=== PATIENT | male | born 1935 | race Hispanic/Latino ===

== ENCOUNTER 2017-06-12 14:46 | Inpatient (IN) | payer MEDICARE ==
--- NOTE | 2017-06-12 16:29 | XRay Report ---
Portable chest: SOB. There are sternotomy wires. The heart is normal in size. There is no vascular congestion. There is mild coarsening of the vascular pattern throughout both lungs. The lungs may also be hyperinflated. The findings are not otherwise remarkable nor are they changed compared to prior examination in May 2016. Impression no Chronic lung disease. Probable prior cardiac surgery. No acute finding.
[2017-06-12] MEDS ORDERED: PROVENTIL IH ONE (16:42)
[2017-06-12] MEDS ORDERED: ATROVENT IH ONE (16:44)
[2017-06-12 16:54] LABS: Basophils % (Auto) 0.6 % (0.0-1.8); Eosinophils % (Auto) 0.6 % (0.0-4.3); Hematocrit 36.6 % (35.5-45.6); Hemoglobin 12.5 gm/dl (11.8-15.2); Lymphocytes # (Auto) 0.5 K/mm3 (1.2-5.4); Lymphocytes % (Auto) 6.7 % (13.4-35.0); Mean Corpuscular HGB Conc 34 % (32-34); Mean Corpuscular Hemoglobin 33 pg (28-32); Mean Corpuscular Volume 96 fl (84-94); Monocytes # (Auto) 0.7 K/mm3 (0.0-0.8); Monocytes % (Auto) 10.8 % (0.0-7.3); Red Cell Distribution Width 15.8 % (13.2-15.2)
--- NOTE | 2017-06-12 16:55 | Emergency Department Report ---
ED Shortness of Breath HPI - General Chief Complaint: Dyspnea/Respdistress Stated Complaint: STEVEN Time Seen by Provider: 06/12/17 16:41 Source: patient, EMS Mode of arrival: Stretcher Limitations: No Limitations - History of Present Illness Initial Comments: 81 YO MALE WITH H/O LARGE SELL LUNG CANCER S/P CHEMO AND XRT 2011 ,STILL SMOKER , WHO IS SHORT OF BREATH EVERYDAY IS C/O INCREASING DYSPNEA FOR THE LAST TWO DAYS. PT NORMALLY ABLE TO WALK TO THE KITCHEN TO FIX HIS FOOD AND IS UNABLE TO DO SO NOW. HE CANNOT EXERT HIMSELF BECAUSE OF INCREASED SOB ON EXERTION AND ALSO SEVERE COUGHING. HE HAS NOT CHEST PAIN. HE SELF MEDICATED WITH 2.5MG OF ALBUTEROL VIA NEB WITHOUT RELIEF. EMS ADMINISTERED 2G MAGNESIUM SULFATE, 125 SOLUMEDROL IV AND 5MG OF ALBUTEROL VIA NEBULIZER. OXYGEN SATURATION WAS 95% MD Complaint: shortness of breath, cough -: Gradual, days(s) (2) Pain Scale: 0 Known History Of: COPD, asthma, diabetes Context: recent URI, smoke/fume exposure (SMOKER), recent illness - Related Data Home Medications Medication Instructions Recorded Confirmed Last Taken ALBUTEROL Inhaler [ProAir HFA 2 inhalation INHALATION TID PRN 05/31/13 06/12/17 11/29/16 06:00 Inhaler] 2 inhal Aspirin [Aspirin BABY CHEW TAB] 1 tab PO DAILY 05/31/13 06/12/17 11/29/16 06:00 81mg Metoprolol Tartrate 25 mg PO Q12HR 06/24/15 06/12/17 11/29/16 18:00 25mg Amiodarone [Cordarone 200 MG TAB] 200 mg PO DAILY 05/23/16 06/12/17 11/29/16 06: 00 200mg Apixaban [Eliquis] 5 mg PO Q12HR 05/23/16 06/12/17 11/29/16 18:00 5mg ALPRAZolam [Xanax TAB] 0.25 mg PO DAILY PRN 11/30/16 06/12/17 11/29/16 06:00 0.25mg AtorvaSTATin [Lipitor] 40 mg PO QAM 11/30/16 06/12/17 11/29/16 06:00 40mg Previous Rx's Medication Instructions Recorded Last Taken Type HYDROcodone/APAP 5-325 [[place] 2 each PO Q6HR PRN #30 tablet 12/01/16 Unknown Rx 5-325 mg TAB] Allergies Allergy/AdvReac Type Severity Reaction Status Date / Time bacitracin Allergy Rash Verified 05/31/13 08:43 [From Neosporin ([id number])] bacitracin zinc Allergy Rash Verified 05/31/13 08:43 [From Neosporin ([id number])] latex Allergy Rash Verified 11/30/16 00:17 neomycin sulfate Allergy Rash Verified 05/31/13 08:43 [From Neosporin ([id number])] polymyxin B Allergy Rash Verified 05/31/13 08:43 [From Neosporin ([id number])] Latex, Natural Rubber AdvReac Rash Verified 11/30/16 00:17 ED Review of Systems ROS: Stated complaint: STEVEN Other details as noted in HPI Constitutional: denies: chills, fever Eyes: denies: eye pain, eye discharge, vision change ENT: denies: ear pain, throat pain Respiratory: cough, shortness of breath, SOB with exertion, SOB at rest, wheezing Cardiovascular: dyspnea on exertion, orthopnea. denies: chest pain, palpitations Endocrine: no symptoms reported Gastrointestinal: denies: abdominal pain, nausea, diarrhea Genitourinary: denies: urgency, dysuria Musculoskeletal: denies: back pain, joint swelling, arthralgia Skin: denies: rash, lesions Neurological: weakness, vertigo. denies: headache, paresthesias Psychiatric: denies: anxiety, depression Hematological/Lymphatic: denies: easy bleeding, easy bruising ED Past Medical Hx - Past Medical History Previous Medical History?: Yes Hx Hypertension: Yes Hx CVA: Yes (2011 no residual) Hx Heart Attack/AMI: Yes (2 [place] 2012) Hx Congestive Heart Failure: No Hx Diabetes: No Hx of Cancer: Yes (LARGE CELL LUNG CANCER/CHEMO/RADIATION 3) Hx Asthma: Yes Hx COPD: Yes Hx HIV: No Additional medical history: lung cancer in remission s/p chemo/xrt 2011 - Surgical History Past Surgical History?: Yes Hx Open Heart Surgery: Yes Additional Surgical History: 2 back surgeries, bypass surgery in may of 2013. tonsil - Social History Smoking Status: Never Smoker - Medications Home Medications: Home Medications Medication Instructions Recorded Confirmed Last Taken Type ALBUTEROL Inhaler [ProAir HFA 2 inhalation INHALATION TID PRN 05/31/13 06/12/17 11/29/16 06:00 History Inhaler] 2 inhal Aspirin [Aspirin BABY CHEW TAB] 1 tab PO DAILY 05/31/13 06/12/17 11/29/16 06:00 History 81mg Metoprolol Tartrate 25 mg PO Q12HR 06/24/15 06/12/17 11/29/16 18:00 History 25mg Amiodarone [Cordarone 200 MG TAB] 200 mg PO DAILY 05/23/16 06/12/17 11/29/16 06: 00 History 200mg Apixaban [Eliquis] 5 mg PO Q12HR 05/23/16 06/12/17 11/29/16 18:00 History 5mg ALPRAZolam [Xanax TAB] 0.25 mg PO DAILY PRN 11/30/16 06/12/17 11/29/16 06:00 History 0.25mg AtorvaSTATin [Lipitor] 40 mg PO QAM 11/30/16 06/12/17 11/29/16 06:00 History 40mg HYDROcodone/APAP 5-325 [[place] 2 each PO Q6HR PRN #30 tablet 12/01/16 06/12/17 Unknown Rx 5-325 mg TAB] ED Physical Exam - General Limitations: No Limitations General appearance: alert, in distress (RESPIRATORY) - Head Head exam: Present: atraumatic, normocephalic - Eye Eye exam: Present: normal appearance, EOMI, scleral icterus (MILD) - ENT ENT exam: Present: mucous membranes moist - Neck Neck exam: Present: normal inspection, full ROM - Respiratory Respiratory exam: Present: normal lung sounds bilaterally, respiratory distress , wheezes, rales, rhonchi, decreased breath sounds (LOWER LUNG RYAN) - Cardiovascular Cardiovascular Exam: Present: regular rate, normal rhythm. Absent: systolic murmur, diastolic murmur, rubs, gallop - GI/Abdominal GI/Abdominal exam: Present: soft, normal bowel sounds. Absent: distended - Rectal Rectal exam: Present: deferred - Extremities Exam Extremities exam: Present: normal inspection, full ROM. Absent: pedal edema - Back Exam Back exam: Present: normal inspection, full ROM - Neurological Exam Neurological exam: Present: alert, oriented X3, CN II-XII intact - Psychiatric Psychiatric exam: Present: normal affect, normal mood - Skin Skin exam: Present: warm, dry, intact, normal color. Absent: rash ED Course Vital Signs 06/12/17 06/12/17 19:05 20:00 Temperature 98.4 F Pulse Rate 83 84 Respiratory 20 21 Rate Blood Pressure 100/58 Blood Pressure 87/47 [Left] O2 Sat by Pulse 97 99 Oximetry ED Medical Decision Making - Lab Data Result diagrams: 06/12/17 16:33 06/12/17 16:33 - EKG Data EKG shows normal: axis (A. FLUTTER WITH VARIABLE AV BLOCK) - Radiology Data Radiology results: report reviewed (CHRONIC LUNG DISEASE) Critical Care Time: Yes Critical care time in (mins) excluding proc time.: 60 Critical care attestation.: If time is entered above; I have spent that time in minutes in the direct care of this critically ill patient, excluding procedure time. BRENT Critical Care Time: 60MIN ED Disposition Clinical Impression: Acute dyspnea, Acute exacerbation of chronic obstructive pulmonary disease ( COPD), Tobacco abuse CHF (congestive heart failure) Qualifiers: Congestive heart failure type: unspecified congestive heart failure type Congestive heart failure chronicity: acute Qualified Code(s): I50.9 - Heart failure, unspecified COPD (chronic obstructive pulmonary disease) Qualifiers: COPD type: COPD with acute exacerbation Qualified Code(s): J44.1 - Chronic obstructive pulmonary disease with (acute) exacerbation Atrial flutter Qualifiers: Atrial flutter type: unspecified Qualified Code(s): I48.92 - Unspecified atrial flutter Disposition: DC-09 OP ADMIT IP TO THIS HOSP Is pt being admited?: Yes Does the pt Need Aspirin: No Condition: Stable Time of Disposition: 20:30 (CASE REVIEWED WITH DR ROGERS AND HE WILL ADMIT THE PT TO THE HOSPITAL)
[2017-06-12] MEDS ORDERED: cefTRIAXone 0.5 GM in NACL 0.9% 20 ML IV ONE (17:00)
[2017-06-12] MEDS ORDERED: ZITHROMAX 500 MG in NACL 0.9% 250ML 250 ML IV ONE (17:00)
[2017-06-12] MEDS ORDERED: ROCEPHIN 500 MG in NACL 0.9% 50 ML IV NR (17:00)
[2017-06-12 17:09] LABS: Platelet Count 162 K/mm3 (140-440)
[2017-06-12 17:11] LABS: BUN/Creatinine Ratio 15; Blood Urea Nitrogen 17 mg/dL (9-20); Calcium 8.6 mg/dL (8.4-10.2); Hemolysis Index 4
[2017-06-12 17:15] LABS: Creatine Kinase MB 2.8 ng/mL (0.0-4.0)
[2017-06-12 17:16] LABS: Alanine Aminotransferase 19 units/L (7-56); Albumin 4.1 g/dL (3.9-5); Bilirubin,Direct < 0.2 mg/dL (0-0.2)
--- NOTE | 2017-06-12 18:18 | Cat Scan Report ---
FINAL REPORT EXAM: CT ANGIO CHEST HISTORY: SOB,H/OLUNG CANCER TECHNIQUE: CTA of the chest was performed after the administration of intravenous contrast. Rotating MIPS were included. Reconstructions were included in the coronal and sagittal planes. PRIORS: None. FINDINGS: Pulmonary arteries and thoracic aorta: The study is adequate for diagnostic purposes. No central or segmental pulmonary embolism. The thoracic aorta is normal in caliber. Atherosclerotic plaque is seen in the thoracic aorta. Lungs and airways: Trace right pleural effusion is seen. Linear scarring is seen in the anterior aspect of the right upper lobe. No focal consolidation. There is narrowing of the airways on the right secondary to confluent soft tissue within the right hilum. No bronchiectasis. Severe centrilobular and paraseptal emphysema is seen. 6 millimeter right upper lobe pulmonary nodule is seen on series 4, image 40. A calcified granuloma is seen within the medial right lower lobe. 4 millimeter left upper lobe pulmonary nodule is seen on series 4, image 17. Mediastinum, heart, pericardium: There is confluent soft tissue within the right hilar region. Several small mediastinal lymph nodes are seen. No cardiac chamber enlargement. No pericardial effusion. Coronary artery calcifications are seen. Thoracic inlet, chest wall, axilla: No chest wall masses. The visualized portions of the thyroid gland demonstrate no focal lesion. No axillary lymphadenopathy. Upper abdomen: The gallbladder is not completely imaged although cholelithiasis is likely. Calcified and noncalcified atherosclerotic plaque is seen within the abdominal aorta. Bones: Median sternotomy wires are present. Degenerative changes are seen in the spine. Chronic appearing T7 compression fracture is seen. Subacute appearing T9 compression fracture is seen. Subacute T11 compression fracture is seen. IMPRESSION: 1. No central or segmental pulmonary embolism. 2. Soft tissue in the right hilum may be related to the patient's known lung cancer. Correlate with history and prior exams if they become available. 3. Small bilateral pulmonary nodules may represent metastatic disease versus granulomata. Consider followup chest CT in 6-12 months. 4. Trace right pleural effusion. 5. Severe centrilobular and paraseptal emphysema. 6. Subacute T9 and T11 compression fractures. Cannot completely exclude underlying metastatic disease. 7. Chronic T7 compression fracture. 8. Probable cholelithiasis.
--- NOTE | 2017-06-12 20:20 | History and Physical Report ---
History of Present Illness Date of examination: 06/12/17 Date of admission: 06/12/17 Chief complaint: CC Increasing SOB for 2 days History of present illness: - History of Present Illness Initial Comments: 81 Y/o male with Hx of lung cancer s/p chemo and xrt 2011 ,who is sob everyday comes in for increasing sob for the last 2 days. PT NORMALLY ABLE TO WALK TO THE KITCHEN TO FIX HIS FOOD AND IS UNABLE TO DO SO NOW. HE CANNOT EXERT HIMSELF BECAUSE OF INCREASED SOB ON EXERTION AND ALSO SEVERE COUGHING. HE HAS NOT CHEST PAIN. HE SELF MEDICATED WITH 2.5MG OF ALBUTEROL VIA NEB WITHOUT RELIEF. EMS ADMINISTERED 2G MAGNESIUM SULFATE, 125 SOLUMEDROL IV AND 5MG OF ALBUTEROL VIA NEBULIZER. OXYGEN SATURATION WAS 95% MD Complaint: shortness of breath, cough -: Gradual, days(s) (2) Pain Scale: 0 Known History Of: COPD, asthma, diabetes Context: recent URI, smoke/fume exposure (SMOKER), recent illness Past Medical History Previous Medical History?: Yes Hx Hypertension: Yes Hx CVA: Yes (2011 no residual) Hx Heart Attack/AMI: Yes (2 [place] 2012) Hx Congestive Heart Failure: No Hx Diabetes: No Hx of Cancer: Yes (LARGE CELL LUNG CANCER/CHEMO/RADIATION 3) Hx Asthma: Yes Hx COPD: Yes Hx HIV: No Additional medical history: lung cancer in remission s/p chemo/xrt 2011 Surgical History Past Surgical History?: Yes Hx Open Heart Surgery: Yes Additional Surgical History: 2 back surgeries, bypass surgery in may of 2013. tonsil Social History Smoking Status: Never Smoker Fam Hx HTN - Medications Home Medications: Home Medications Medication Instructions Recorded Confirmed Last Taken Type ALBUTEROL Inhaler [ProAir HFA 2 inhalation INHALATION TID PRN 05/31/13 11/30/16 11/29/16 06:00 History Inhaler] 2 inhal Aspirin [Aspirin BABY CHEW TAB] 1 tab PO DAILY 05/31/13 11/30/16 11/29/16 06:00 History 81mg Metoprolol Tartrate 25 mg PO Q12HR 06/24/15 11/30/16 11/29/16 18:00 History 25mg Amiodarone [Cordarone 200 MG TAB] 200 mg PO DAILY 05/23/16 11/30/16 11/29/16 06: 00 History 200mg Apixaban [Eliquis] 5 mg PO Q12HR 05/23/16 11/30/16 11/29/16 18:00 History 5mg ALPRAZolam [Xanax TAB] 0.25 mg PO DAILY PRN 11/30/16 11/30/16 11/29/16 06:00 History 0.25mg AtorvaSTATin [Lipitor] 40 mg PO QAM 11/30/16 11/30/16 11/29/16 06:00 History 40mg Fluticasone/Salmeterol [Advair 1 puff IH BID 11/30/16 11/30/16 11/29/16 18:00 History Diskus 250-50 mcg] 1 puff Gabapentin [Neurontin] 100 mg PO Q8HR #90 capsule 12/01/16 Unknown Rx HYDROcodone/APAP 5-325 [[place] 2 each PO Q6HR PRN #30 tablet 12/01/16 Unknown Rx 5-325 mg TAB] Review of systems: Stated complaint: STEVEN Other details as noted in HPI Constitutional: denies: chills, fever Eyes: denies: eye pain, eye discharge, vision change ENT: denies: ear pain, throat pain Respiratory: cough, shortness of breath, SOB with exertion, SOB at rest, wheezing Cardiovascular: dyspnea on exertion, orthopnea. denies: chest pain, palpitations Endocrine: no symptoms reported Gastrointestinal: denies: abdominal pain, nausea, diarrhea Genitourinary: denies: urgency, dysuria Musculoskeletal: denies: back pain, joint swelling, arthralgia Skin: denies: rash, lesions Neurological: weakness, vertigo. denies: headache, paresthesias Psychiatric: denies: anxiety, depression Hematological/Lymphatic: denies: easy bleeding, easy bruising Medications and Allergies Allergies Allergy/AdvReac Type Severity Reaction Status Date / Time bacitracin Allergy Rash Verified 05/31/13 08:43 [From Neosporin ([id number])] bacitracin zinc Allergy Rash Verified 05/31/13 08:43 [From Neosporin ([id number])] latex Allergy Rash Verified 11/30/16 00:17 neomycin sulfate Allergy Rash Verified 05/31/13 08:43 [From Neosporin ([id number])] polymyxin B Allergy Rash Verified 05/31/13 08:43 [From Neosporin ([id number])] Latex, Natural Rubber AdvReac Rash Verified 11/30/16 00:17 Home Medications Medication Instructions Recorded Confirmed Last Taken Type ALBUTEROL Inhaler [ProAir HFA 2 inhalation INHALATION TID PRN 05/31/13 06/12/17 11/29/16 06:00 History Inhaler] 2 inhal Aspirin [Aspirin BABY CHEW TAB] 1 tab PO DAILY 05/31/13 06/12/17 11/29/16 06:00 History 81mg Metoprolol Tartrate 25 mg PO Q12HR 06/24/15 06/12/17 11/29/16 18:00 History 25mg Amiodarone [Cordarone 200 MG TAB] 200 mg PO DAILY 05/23/16 06/12/17 11/29/16 06: 00 History 200mg Apixaban [Eliquis] 5 mg PO Q12HR 05/23/16 06/12/17 11/29/16 18:00 History 5mg ALPRAZolam [Xanax TAB] 0.25 mg PO DAILY PRN 11/30/16 06/12/17 11/29/16 06:00 History 0.25mg AtorvaSTATin [Lipitor] 40 mg PO QAM 11/30/16 06/12/17 11/29/16 06:00 History 40mg HYDROcodone/APAP 5-325 [[place] 2 each PO Q6HR PRN #30 tablet 12/01/16 06/12/17 Unknown Rx 5-325 mg TAB] Exam - Constitutional Vitals: Temp Pulse Resp BP Pulse Ox 98.4 F 84 21 100/58 99 06/12/17 19:05 06/12/17 20:00 06/12/17 20:00 06/12/17 20:00 06/12/17 20:00 General appearance: Present: mild distress, well-nourished - EENT Eyes: Present: PERRL ENT: hearing intact, clear oral mucosa - Neck Neck: Present: supple, normal ROM - Respiratory Respiratory effort: normal Respiratory: bilateral: CTA - Cardiovascular Heart rate: 80 Rhythm: regular Heart Sounds: Present: S1 & S2. Absent: rub, click - Extremities Extremities: no ischemia, pulses intact, pulses symmetrical, No edema Peripheral Pulses: within normal limits - Abdominal General gastrointestinal: Present: soft, non-tender, non-distended, normal bowel sounds Male genitourinary: Present: normal - Rectal Rectal Exam: deferred - Integumentary Integumentary: Present: clear, warm, dry - Musculoskeletal Musculoskeletal: gait normal, strength equal bilaterally - Psychiatric Psychiatric: appropriate mood/affect, intact judgment & insight - Neurologic Neurologic: CNII-XII intact, moves all extremities - Allied Health Allied health notes reviewed: nursing, case management Results - Labs CBC & Chem 7: 06/13/17 04:34 06/13/17 04:34 Labs: Laboratory Last Values WBC 6.8 K/mm3 (4.5-11.0) 06/12/17 16:33 RBC 3.80 M/mm3 (3.65-5.03) 06/12/17 16:33 Hgb 12.5 gm/dl (11.8-15.2) 06/12/17 16:33 Hct 36.6 % (35.5-45.6) 06/12/17 16:33 MCV 96 fl (84-94) H 06/12/17 16:33 MCH 33 pg (28-32) H 06/12/17 16:33 MCHC 34 % (32-34) 06/12/17 16:33 RDW 15.8 % (13.2-15.2) H 06/12/17 16:33 Plt Count 162 K/mm3 (140-440) 06/12/17 16:33 Lymph % (Auto) 6.7 % (13.4-35.0) L 06/12/17 16:33 [place] % (Auto) 10.8 % (0.0-7.3) H 06/12/17 16:33 Eos % (Auto) 0.6 % (0.0-4.3) 06/12/17 16:33 Baso % (Auto) 0.6 % (0.0-1.8) 06/12/17 16:33 Lymph # 0.5 K/mm3 (1.2-5.4) L 06/12/17 16:33 [place] # 0.7 K/mm3 (0.0-0.8) 06/12/17 16:33 Eos # 0.0 K/mm3 (0.0-0.4) 06/12/17 16:33 Baso # 0.0 K/mm3 (0.0-0.1) 06/12/17 16:33 Seg Neutrophils % 81.3 % (40.0-70.0) H 06/12/17 16:33 Seg Neutrophils # 5.5 K/mm3 (1.8-7.7) 06/12/17 16:33 Sodium 139 mmol/L (137-145) 06/12/17 16:33 Potassium 4.4 mmol/L (3.6-5.0) 06/12/17 16:33 Chloride 98.4 mmol/L (98-107) 06/12/17 16:33 Carbon Dioxide 24 mmol/L (22-30) 06/12/17 16:33 Anion Gap 21 mmol/L 06/12/17 16:33 BUN 17 mg/dL (9-20) 06/12/17 16:33 Creatinine 1.1 mg/dL (0.8-1.5) 06/12/17 16:33 Estimated GFR > 60 ml/min 06/12/17 16:33 BUN/Creatinine Ratio 15 % 06/12/17 16:33 Glucose 132 mg/dL (75-100) H 06/12/17 16:33 Calcium 8.6 mg/dL (8.4-10.2) 06/12/17 16:33 Total Bilirubin 0.30 mg/dL (0.1-1.2) 06/12/17 16:33 Direct Bilirubin < 0.2 mg/dL (0-0.2) 06/12/17 16:33 AST 24 units/L (5-40) 06/12/17 16:33 ALT 19 units/L (7-56) 06/12/17 16:33 Alkaline Phosphatase 84 units/L (35-129) 06/12/17 16:33 Total Creatine Kinase 210 units/L (55-170) H 06/12/17 16:33 CK-MB (CK-2) 2.8 ng/mL (0.0-4.0) 06/12/17 16:33 CK-MB (CK-2) Rel Index 1.3 (0-4) 06/12/17 16:33 Troponin T < 0.010 ng/mL (0.00-0.029) 06/12/17 16:33 NT-Pro-B Natriuret Pep 1709 pg/mL (0-900) H 06/12/17 16:33 Total Protein 7.1 g/dL (6.3-8.2) 06/12/17 16:33 Albumin 4.1 g/dL (3.9-5) 06/12/17 16:33 Albumin/Globulin Ratio 1.4 % 06/12/17 16:33 Short CBC 06/12/17 06/13/17 Range/Units 16:33 04:34 WBC 6.8 4.6 (4.5-11.0) K/mm3 Hgb 12.5 11.4 L (11.8-15.2) gm/dl Hct 36.6 33.1 L (35.5-45.6) % Plt Count 162 161 (140-440) K/mm3 [facility] 06/12/17 06/13/17 16:33 04:34 Sodium 139 140 Potassium 4.4 3.7 Chloride 98.4 100.2 Carbon Dioxide 24 23 BUN 17 17 Creatinine 1.1 1.0 Glucose 132 H 178 H Calcium 8.6 8.3 L Cardiac Enzymes 06/12/17 06/12/17 Range/Units 16:33 16:33 Total Creatine Kinase 210 H (55-170) units/L CK-MB (CK-2) 2.8 (0.0-4.0) ng/mL Troponin T < 0.010 (0.00-0.029) ng/mL Liver Function 06/12/17 06/13/17 Range/Units 16:33 04:34 Total Bilirubin 0.30 0.20 (0.1-1.2) mg/dL Direct Bilirubin < 0.2 (0-0.2) mg/dL AST 24 20 (5-40) units/L ALT 19 18 (7-56) units/L Alkaline Phosphatase 84 75 (35-129) units/L Albumin 4.1 3.5 L (3.9-5) g/dL Short CBC 06/12/17 06/13/17 Range/Units 16:33 04:34 WBC 6.8 4.6 (4.5-11.0) K/mm3 Hgb 12.5 11.4 L (11.8-15.2) gm/dl Hct 36.6 33.1 L (35.5-45.6) % Plt Count 162 161 (140-440) K/mm3 [facility] 06/12/17 06/13/17 16:33 04:34 Sodium 139 140 Potassium 4.4 3.7 Chloride 98.4 100.2 Carbon Dioxide 24 23 BUN 17 17 Creatinine 1.1 1.0 Glucose 132 H 178 H Calcium 8.6 8.3 L Cardiac Enzymes 06/12/17 06/12/17 Range/Units 16:33 16:33 Total Creatine Kinase 210 H (55-170) units/L CK-MB (CK-2) 2.8 (0.0-4.0) ng/mL Troponin T < 0.010 (0.00-0.029) ng/mL Liver Function 06/12/17 06/13/17 Range/Units 16:33 04:34 Total Bilirubin 0.30 0.20 (0.1-1.2) mg/dL Direct Bilirubin < 0.2 (0-0.2) mg/dL AST 24 20 (5-40) units/L ALT 19 18 (7-56) units/L Alkaline Phosphatase 84 75 (35-129) units/L Albumin 4.1 3.5 L (3.9-5) g/dL - Imaging and Cardiology EKG: report reviewed (A flutter with varable av block) Chest x-ray: report reviewed (Emphysema) CT scan - chest: report reviewed (Rt Hilar soft tissue swelling and [place] pulm nodules) Assessment and Plan Advance Directives: Yes (FC) VTE prophylaxis?: Chemical Plan of care discussed with patient/family: Yes - Patient Problems (1) Acute respiratory failure Current Visit: No Status: Acute Qualifiers: Respiratory failure complication: hypoxia Qualified Code(s): J96.01 - Acute respiratory failure with hypoxia Plan to address problem: Sec to COPD/Lung Ca (2) Acute exacerbation of chronic obstructive pulmonary disease (COPD) Current Visit: Yes Status: Acute Plan to address problem: Neb tx /Solumedrol and IV Abx (3) Atrial flutter Current Visit: Yes Status: Chronic Qualifiers: Atrial flutter type: unspecified Qualified Code(s): I48.92 - Unspecified atrial flutter Plan to address problem: Patient on Amiodarone and Eliquis (4) Lung cancer Current Visit: No Status: Chronic Qualifiers: Laterality: unspecified laterality Plan to address problem: Follows with Dr Cruz.Will consult Dr Mark (5) Peripheral neuropathy Current Visit: Yes Status: Chronic Qualifiers: Peripheral neuropathy type: polyneuropathy, unspecified Qualified Code(s): G62.9 - Polyneuropathy, unspecified Plan to address problem: Cont Gabapentin (6) DVT prophylaxis Current Visit: Yes Status: Acute Plan to address problem: on Eliquis (7) Tobacco abuse Current Visit: Yes Status: Acute Plan to address problem: Nicoderm patch initiated
[2017-06-12] MEDS ORDERED: PROAIR IH PRN (20:33)
[2017-06-12] MEDS ORDERED: DULCOLAX PR PRN (20:40)
[2017-06-12] MEDS ORDERED: TYLENOL PO PRN (20:40)
[2017-06-12] MEDS ORDERED: ZOFRAN IV PRN (20:40)
[2017-06-12] MEDS ORDERED: MORPHINE IV PRN ×2 (20:40)
[2017-06-12] MEDS ORDERED: PERCOCET 5/325 PO PRN (20:40)
[2017-06-12] MEDS ORDERED: MILK OF MAGNESIA PO PRN (20:40)
[2017-06-12] MEDS ORDERED: AMBIEN PO PRN (20:40)
[2017-06-12] MEDS ORDERED: PROVENTIL IH PRN ×2 (20:49→21:15)
[2017-06-12] MEDS ORDERED: DUONEB *Not for PRN Use IH (20:54)
[2017-06-12] MEDS ORDERED: LOVENOX SUB-Q SCH (21:00)
[2017-06-12] MEDS ORDERED: LEVAQUIN 750MG/150ML 750 MG/150 ML BAG IV ONE (21:53)
[2017-06-12] MEDS: LEVAQUIN 750MG/150ML 750 MG/150 ML BAG IV SCH (21:55)
[2017-06-12] MEDS ORDERED: NON-FORMULARY (Fluticasone/Salmeterol [Advair Diskus 250-50 Mcg] 1 PUFF) IH SCH (22:00)
[2017-06-12] MEDS: DUONEB *Not for PRN Use IH SCH (22:39)
[2017-06-12] MEDS: NEURONTIN PO SCH (22:55)
[2017-06-12] MEDS: PEPCID PO SCH (22:55)
[2017-06-12] MEDS: XANAX PO PRN (22:55)
[2017-06-12] MEDS: BABY ASPIRIN PO SCH (22:56)
[2017-06-12] MEDS: ELIQUIS PO SCH (22:57)
[2017-06-12] MEDS: CORDARONE PO SCH (22:57)
[2017-06-12] MEDS: LOPRESSOR PO SCH (22:58)
[2017-06-13 04:58] LABS: Basophils % (Auto) 0.2 % (0.0-1.8); Hematocrit 33.1 % (35.5-45.6); Hemoglobin 11.4 gm/dl (11.8-15.2); Lymphocytes # (Auto) 0.2 K/mm3 (1.2-5.4); Lymphocytes % (Auto) 3.8 % (13.4-35.0); Mean Corpuscular HGB Conc 34 % (32-34); Mean Corpuscular Hemoglobin 33 pg (28-32); Mean Corpuscular Volume 96 fl (84-94); Monocytes # (Auto) 0.6 K/mm3 (0.0-0.8); Monocytes % (Auto) 12.4 % (0.0-7.3); Platelet Count 161 K/mm3 (140-440); Red Blood Count 3.47 M/mm3 (3.65-5.03); Red Cell Distribution Width 15.9 % (13.2-15.2)
[2017-06-13 05:21] LABS: Alanine Aminotransferase 18 units/L (7-56); Albumin 3.5 g/dL (3.9-5); BUN/Creatinine Ratio 17; Blood Urea Nitrogen 17 mg/dL (9-20); Calcium 8.3 mg/dL (8.4-10.2); Hemolysis Index 8
[2017-06-13] MEDS: DUONEB *Not for PRN Use IH SCH ×4 (05:46→14:17)
[2017-06-13] MEDS: NEURONTIN PO SCH ×3 (06:03→21:23)
[2017-06-13] MEDS: BROVANA NEBU IH SCH ×2 (07:26→19:40)
[2017-06-13] MEDS: PULMICORT IH SCH ×2 (07:26→19:40)
[2017-06-13] MEDS: PEPCID PO SCH (10:40)
[2017-06-13] MEDS: CORDARONE PO SCH (10:40)
[2017-06-13] MEDS: BABY ASPIRIN PO SCH (10:40)
[2017-06-13] MEDS: ELIQUIS PO SCH ×2 (10:41→21:23)
[2017-06-13] MEDS: LOPRESSOR PO SCH ×2 (10:44→21:19)
--- NOTE | 2017-06-13 14:16 | Progress Note ---
<PEACE GUEVARA - Last Filed: 06/13/17 14:17> Assessment and Plan Assessment and plan: 81 Y/o male with Hx of lung cancer s/p chemo and xrt 2011 ,who is sob everyday comes in for increasing sob for the last 2 days. PT NORMALLY ABLE TO WALK TO THE KITCHEN TO FIX HIS FOOD AND IS UNABLE TO DO SO NOW. HE CANNOT EXERT HIMSELF BECAUSE OF INCREASED SOB ON EXERTION AND ALSO SEVERE COUGHING. HE HAS NO CHEST PAIN. HE SELF MEDICATED WITH 2.5MG OF ALBUTEROL VIA NEB WITHOUT RELIEF. EMS ADMINISTERED 2G MAGNESIUM SULFATE, 125 SOLUMEDROL IV AND 5MG OF ALBUTEROL VIA NEBULIZER. OXYGEN SATURATION WAS 95% Acute on chronic respiratory failure Sec to COPD/Lung Ca On home O2 PRN Acute exacerbation of chronic obstructive pulmonary disease (COPD) Daughter states allergy to Spiriva Neb tx /Solumedrol and IV Abx Atrial flutter Patient on Amiodarone and Eliquis History of Lung cancer Follows with Dr Castro, Dr Mark consulted Peripheral neuropathy Cont Gabapentin Hyperglycemia Likely due to steroids, A1C 5.6 DVT prophylaxis on Eliquis Subacute compression fractures per CT ? due to metastatic disease Tobacco abuse Counselled on smoking cessation Continue Nicoderm patch History Interval history: Patient was seen and examined. No new events overnight. Patient reports shortness of breath with movement. He denies chest pain, nausea, vomiting. Labs and nursing notes reviewed Hospitalist Physical - Constitutional Vitals: Temp Pulse Resp BP Pulse Ox 98.0 F 97 H 20 119/66 95 06/13/17 07:46 06/13/17 10:44 06/13/17 07:46 06/13/17 10:44 06/13/17 10:37 General appearance: Present: no acute distress, well-nourished - EENT Eyes: Present: PERRL, EOM intact ENT: hearing intact, clear oral mucosa - Neck Neck: Present: supple, normal ROM - Respiratory Respiratory effort: normal Respiratory: bilateral: wheezing - Cardiovascular Rhythm: regular Heart Sounds: Present: S1 & S2 - Extremities Extremities: no ischemia, No edema - Abdominal General gastrointestinal: soft, non-tender - Integumentary Integumentary: Present: clear, warm, dry - Psychiatric Psychiatric: appropriate mood/affect, cooperative - Neurologic Neurologic: CNII-XII intact, moves all extremities - Allied Health Allied health notes reviewed: nursing Results - Labs CBC & Chem 7: 06/13/17 04:34 06/13/17 04:34 Labs: Laboratory Last Values WBC 4.6 K/mm3 (4.5-11.0) 06/13/17 04:34 RBC 3.47 M/mm3 (3.65-5.03) L 06/13/17 04:34 Hgb 11.4 gm/dl (11.8-15.2) L 06/13/17 04:34 Hct 33.1 % (35.5-45.6) L 06/13/17 04:34 MCV 96 fl (84-94) H 06/13/17 04:34 MCH 33 pg (28-32) H 06/13/17 04:34 MCHC 34 % (32-34) 06/13/17 04:34 RDW 15.9 % (13.2-15.2) H 06/13/17 04:34 Plt Count 161 K/mm3 (140-440) 06/13/17 04:34 Lymph % (Auto) 3.8 % (13.4-35.0) L 06/13/17 04:34 [place] % (Auto) 12.4 % (0.0-7.3) H 06/13/17 04:34 Eos % (Auto) 0.0 % (0.0-4.3) 06/13/17 04:34 Baso % (Auto) 0.2 % (0.0-1.8) 06/13/17 04:34 Lymph # 0.2 K/mm3 (1.2-5.4) L 06/13/17 04:34 [place] # 0.6 K/mm3 (0.0-0.8) 06/13/17 04:34 Eos # 0.0 K/mm3 (0.0-0.4) 06/13/17 04:34 Baso # 0.0 K/mm3 (0.0-0.1) 06/13/17 04:34 Seg Neutrophils % 83.6 % (40.0-70.0) H 06/13/17 04:34 Seg Neutrophils # 3.8 K/mm3 (1.8-7.7) 06/13/17 04:34 Sodium 140 mmol/L (137-145) 06/13/17 04:34 Potassium 3.7 mmol/L (3.6-5.0) 06/13/17 04:34 Chloride 100.2 mmol/L (98-107) 06/13/17 04:34 Carbon Dioxide 23 mmol/L (22-30) 06/13/17 04:34 Anion Gap 21 mmol/L 06/13/17 04:34 BUN 17 mg/dL (9-20) 06/13/17 04:34 Creatinine 1.0 mg/dL (0.8-1.5) 06/13/17 04:34 Estimated GFR > 60 ml/min 06/13/17 04:34 BUN/Creatinine Ratio 17 % 06/13/17 04:34 Glucose 178 mg/dL (75-100) H 06/13/17 04:34 Hemoglobin A1c 5.6 % (4-6) 06/12/17 16:33 Calcium 8.3 mg/dL (8.4-10.2) L 06/13/17 04:34 Total Bilirubin 0.20 mg/dL (0.1-1.2) 06/13/17 04:34 Direct Bilirubin < 0.2 mg/dL (0-0.2) 06/12/17 16:33 AST 20 units/L (5-40) 06/13/17 04:34 ALT 18 units/L (7-56) 06/13/17 04:34 Alkaline Phosphatase 75 units/L (35-129) 06/13/17 04:34 Total Creatine Kinase 210 units/L (55-170) H 06/12/17 16:33 CK-MB (CK-2) 2.8 ng/mL (0.0-4.0) 06/12/17 16:33 CK-MB (CK-2) Rel Index 1.3 (0-4) 06/12/17 16:33 Troponin T < 0.010 ng/mL (0.00-0.029) 06/12/17 16:33 NT-Pro-B Natriuret Pep 1709 pg/mL (0-900) H 06/12/17 16:33 Total Protein 6.3 g/dL (6.3-8.2) 06/13/17 04:34 Albumin 3.5 g/dL (3.9-5) L 06/13/17 04:34 Albumin/Globulin Ratio 1.3 % 06/13/17 04:34 <KENNEDI PAK R - Last Filed: 06/13/17 14:48> Assessment and Plan Assessment and plan: I saw and evaluated the patient. I agree with the findings and the plan of care as documented in the PA's~note, with the following corrections and additions. Hospitalist Physical - Constitutional Vitals: Temp Pulse Resp BP Pulse Ox 98.0 F 97 H 20 119/66 95 06/13/17 07:46 06/13/17 10:44 06/13/17 07:46 06/13/17 10:44 06/13/17 10:37 Results - Labs CBC & Chem 7: 06/13/17 04:34 06/13/17 04:34 Labs: Laboratory Last Values WBC 4.6 K/mm3 (4.5-11.0) 06/13/17 04:34 RBC 3.47 M/mm3 (3.65-5.03) L 06/13/17 04:34 Hgb 11.4 gm/dl (11.8-15.2) L 06/13/17 04:34 Hct 33.1 % (35.5-45.6) L 06/13/17 04:34 MCV 96 fl (84-94) H 06/13/17 04:34 MCH 33 pg (28-32) H 06/13/17 04:34 MCHC 34 % (32-34) 06/13/17 04:34 RDW 15.9 % (13.2-15.2) H 06/13/17 04:34 Plt Count 161 K/mm3 (140-440) 06/13/17 04:34 Lymph % (Auto) 3.8 % (13.4-35.0) L 06/13/17 04:34 [place] % (Auto) 12.4 % (0.0-7.3) H 06/13/17 04:34 Eos % (Auto) 0.0 % (0.0-4.3) 06/13/17 04:34 Baso % (Auto) 0.2 % (0.0-1.8) 06/13/17 04:34 Lymph # 0.2 K/mm3 (1.2-5.4) L 06/13/17 04:34 [place] # 0.6 K/mm3 (0.0-0.8) 06/13/17 04:34 Eos # 0.0 K/mm3 (0.0-0.4) 06/13/17 04:34 Baso # 0.0 K/mm3 (0.0-0.1) 06/13/17 04:34 Seg Neutrophils % 83.6 % (40.0-70.0) H 06/13/17 04:34 Seg Neutrophils # 3.8 K/mm3 (1.8-7.7) 06/13/17 04:34 Sodium 140 mmol/L (137-145) 06/13/17 04:34 Potassium 3.7 mmol/L (3.6-5.0) 06/13/17 04:34 Chloride 100.2 mmol/L (98-107) 06/13/17 04:34 Carbon Dioxide 23 mmol/L (22-30) 06/13/17 04:34 Anion Gap 21 mmol/L 06/13/17 04:34 BUN 17 mg/dL (9-20) 06/13/17 04:34 Creatinine 1.0 mg/dL (0.8-1.5) 06/13/17 04:34 Estimated GFR > 60 ml/min 06/13/17 04:34 BUN/Creatinine Ratio 17 % 06/13/17 04:34 Glucose 178 mg/dL (75-100) H 06/13/17 04:34 Hemoglobin A1c 5.6 % (4-6) 06/12/17 16:33 Calcium 8.3 mg/dL (8.4-10.2) L 06/13/17 04:34 Total Bilirubin 0.20 mg/dL (0.1-1.2) 06/13/17 04:34 Direct Bilirubin < 0.2 mg/dL (0-0.2) 06/12/17 16:33 AST 20 units/L (5-40) 06/13/17 04:34 ALT 18 units/L (7-56) 06/13/17 04:34 Alkaline Phosphatase 75 units/L (35-129) 06/13/17 04:34 Total Creatine Kinase 210 units/L (55-170) H 06/12/17 16:33 CK-MB (CK-2) 2.8 ng/mL (0.0-4.0) 06/12/17 16:33 CK-MB (CK-2) Rel Index 1.3 (0-4) 06/12/17 16:33 Troponin T < 0.010 ng/mL (0.00-0.029) 06/12/17 16:33 NT-Pro-B Natriuret Pep 1709 pg/mL (0-900) H 06/12/17 16:33 Total Protein 6.3 g/dL (6.3-8.2) 06/13/17 04:34 Albumin 3.5 g/dL (3.9-5) L 06/13/17 04:34 Albumin/Globulin Ratio 1.3 % 06/13/17 04:34
[2017-06-13] MEDS: HABITROL TD SCH (15:35)
[2017-06-13] MEDS: XANAX PO PRN (17:38)
--- NOTE | 2017-06-13 20:35 | Event Note ---
Date: 06/13/[address] Cervantes thank you for asking us to participate in the care of this patient. This is 81 year old white male history of large cell lung cancer, S/P chemo and radiation therapy in 2012 admitted with increasing shortness of breath for last few days.Patient feeling weak and getting shortness of breath even for little exertion.Patient denies chest pain . Patient complained severe cough.Patient has history of COPD , diabetes, CVA,History of NM and history of lung cancer in remission.Patients smoking history for 1 packx 70 years. Counselled to stop smoking. 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 Patient allergic to Bacitracin,Ltex, Neomycin. Patients chest xray reported consistent with chronic lung disease. Angio CT of chest reported No PE.Bilateral multiple nodules metastatic lesions Vs Granulomata. Recommended repeat CAT scan of chest in 6 to 12 months. Impression: 1. Acute Exacerbation of COPD. 2. Acute bronchitis. 3. History of Lung CA. 4. Diabetes. 5. History of CVA 6. History of NM. PLAN: 1. O2 2 litres via nasal canula. 2. ABGs on room air. 3. Albuterol/atrovent aerosol treatments q 6 hours. 4. Continue I/V solumedral 5. Continue I/V Levaquine. 6. Continue Apixaban 7. Continue famotadine. 8. Counselled to stop smoking.
[2017-06-13] MEDS: LEVAQUIN 750MG/150ML 750 MG/150 ML BAG IV SCH (21:38)
[2017-06-14] MEDS: PEPCID PO SCH ×3 (02:23→23:36)
[2017-06-14] MEDS: DUONEB *Not for PRN Use IH SCH ×4 (05:08→19:51)
[2017-06-14] MEDS: NEURONTIN PO SCH ×3 (05:21→23:35)
[2017-06-14] MEDS: PULMICORT IH SCH ×2 (07:44→19:51)
[2017-06-14] MEDS: BROVANA NEBU IH SCH ×2 (07:44→19:54)
[2017-06-14] MEDS: CORDARONE PO SCH (09:47)
[2017-06-14] MEDS: HABITROL TD SCH (09:47)
[2017-06-14] MEDS: ELIQUIS PO SCH ×2 (09:48→23:35)
[2017-06-14] MEDS: BABY ASPIRIN PO SCH (09:48)
[2017-06-14] MEDS: LOPRESSOR PO SCH ×2 (10:00→23:37)
--- NOTE | 2017-06-14 11:56 | Progress Note ---
<PEACE GUEVARA - Last Filed: 06/14/17 13:13> Assessment and Plan Assessment and plan: 81 Y/o male with Hx of lung cancer s/p chemo and xrt 2011 ,who is sob everyday comes in for increasing sob for the last 2 days. PT NORMALLY ABLE TO WALK TO THE KITCHEN TO FIX HIS FOOD AND IS UNABLE TO DO SO NOW. HE CANNOT EXERT HIMSELF BECAUSE OF INCREASED SOB ON EXERTION AND ALSO SEVERE COUGHING. HE HAS NO CHEST PAIN. HE SELF MEDICATED WITH 2.5MG OF ALBUTEROL VIA NEB WITHOUT RELIEF. EMS ADMINISTERED 2G MAGNESIUM SULFATE, 125 SOLUMEDROL IV AND 5MG OF ALBUTEROL VIA NEBULIZER. OXYGEN SATURATION WAS 95% Acute on chronic respiratory failure Sec to COPD/Lung Ca On home O2 PRN Acute exacerbation of chronic obstructive pulmonary disease (COPD) Daughter states allergy to Spiriva Neb tx /Solumedrol and IV Abx Pulmonology following recommended - 1. O2 2 litres via nasal canula. 2. ABGs on room air. 3. Albuterol/atrovent aerosol treatments q 6 hours. 4. Continue I/V solumedral, Levaquine Atrial flutter Patient on Amiodarone and Eliquis History of Lung cancer Follows with Dr Castro, Dr Mark consulted Peripheral neuropathy Cont Gabapentin Hyperglycemia Likely due to steroids, A1C 5.6 DVT prophylaxis on Eliquis Subacute compression fractures per CT ? due to metastatic disease Tobacco abuse Counselled on smoking cessation Continue Nicoderm patch History Interval history: Patient was seen and examined. No new events overnight. Patient reports shortness of breath with movement and he feels very weak this morning. He denies chest pain, nausea, vomiting. Labs and nursing notes reviewed Hospitalist Physical - Constitutional Vitals: Temp Pulse Resp BP Pulse Ox 97.4 F L 78 18 116/62 98 06/14/17 07:28 06/14/17 10:00 06/14/17 07:46 06/14/17 10:00 06/14/17 07:45 General appearance: Present: no acute distress, well-nourished - EENT Eyes: Present: PERRL, EOM intact ENT: hearing intact, clear oral mucosa - Neck Neck: Present: supple, normal ROM - Respiratory Respiratory effort: normal Respiratory: bilateral: diminished, wheezing - Cardiovascular Rhythm: regular Heart Sounds: Present: S1 & S2 - Extremities Extremities: no ischemia, No edema Peripheral Pulses: within normal limits - Abdominal General gastrointestinal: soft, non-tender - Integumentary Integumentary: Present: clear, warm, dry - Psychiatric Psychiatric: appropriate mood/affect, cooperative - Neurologic Neurologic: CNII-XII intact, moves all extremities - Allied Health Allied health notes reviewed: nursing Results - Labs CBC & Chem 7: 06/13/17 04:34 06/13/17 04:34 Labs: Laboratory Last Values WBC 4.6 K/mm3 (4.5-11.0) 06/13/17 04:34 RBC 3.47 M/mm3 (3.65-5.03) L 06/13/17 04:34 Hgb 11.4 gm/dl (11.8-15.2) L 06/13/17 04:34 Hct 33.1 % (35.5-45.6) L 06/13/17 04:34 MCV 96 fl (84-94) H 06/13/17 04:34 MCH 33 pg (28-32) H 06/13/17 04:34 MCHC 34 % (32-34) 06/13/17 04:34 RDW 15.9 % (13.2-15.2) H 06/13/17 04:34 Plt Count 161 K/mm3 (140-440) 06/13/17 04:34 Lymph % (Auto) 3.8 % (13.4-35.0) L 06/13/17 04:34 [place] % (Auto) 12.4 % (0.0-7.3) H 06/13/17 04:34 Eos % (Auto) 0.0 % (0.0-4.3) 06/13/17 04:34 Baso % (Auto) 0.2 % (0.0-1.8) 06/13/17 04:34 Lymph # 0.2 K/mm3 (1.2-5.4) L 06/13/17 04:34 [place] # 0.6 K/mm3 (0.0-0.8) 06/13/17 04:34 Eos # 0.0 K/mm3 (0.0-0.4) 06/13/17 04:34 Baso # 0.0 K/mm3 (0.0-0.1) 06/13/17 04:34 Seg Neutrophils % 83.6 % (40.0-70.0) H 06/13/17 04:34 Seg Neutrophils # 3.8 K/mm3 (1.8-7.7) 06/13/17 04:34 POC ABG pH 7.384 (7.35-7.45) 06/14/17 10:50 POC ABG pCO2 42.6 (35-45) 06/14/17 10:50 POC ABG pO2 85 (80-105) 06/14/17 10:50 POC ABG HCO3 25.4 06/14/17 10:50 POC ABG Total CO2 27 06/14/17 10:50 POC ABG O2 Sat 96 06/14/17 10:50 POC ABG Base Excess 0 06/14/17 10:50 FiO2 21 % 06/14/17 10:50 Sodium 140 mmol/L (137-145) 06/13/17 04:34 Potassium 3.7 mmol/L (3.6-5.0) 06/13/17 04:34 Chloride 100.2 mmol/L (98-107) 06/13/17 04:34 Carbon Dioxide 23 mmol/L (22-30) 06/13/17 04:34 Anion Gap 21 mmol/L 06/13/17 04:34 BUN 17 mg/dL (9-20) 06/13/17 04:34 Creatinine 1.0 mg/dL (0.8-1.5) 06/13/17 04:34 Estimated GFR > 60 ml/min 06/13/17 04:34 BUN/Creatinine Ratio 17 % 06/13/17 04:34 Glucose 178 mg/dL (75-100) H 06/13/17 04:34 Hemoglobin A1c 5.6 % (4-6) 06/12/17 16:33 Calcium 8.3 mg/dL (8.4-10.2) L 06/13/17 04:34 Total Bilirubin 0.20 mg/dL (0.1-1.2) 06/13/17 04:34 Direct Bilirubin < 0.2 mg/dL (0-0.2) 06/12/17 16:33 AST 20 units/L (5-40) 06/13/17 04:34 ALT 18 units/L (7-56) 06/13/17 04:34 Alkaline Phosphatase 75 units/L (35-129) 06/13/17 04:34 Total Creatine Kinase 210 units/L (55-170) H 06/12/17 16:33 CK-MB (CK-2) 2.8 ng/mL (0.0-4.0) 06/12/17 16:33 CK-MB (CK-2) Rel Index 1.3 (0-4) 06/12/17 16:33 Troponin T < 0.010 ng/mL (0.00-0.029) 06/12/17 16:33 NT-Pro-B Natriuret Pep 1709 pg/mL (0-900) H 06/12/17 16:33 Total Protein 6.3 g/dL (6.3-8.2) 06/13/17 04:34 Albumin 3.5 g/dL (3.9-5) L 06/13/17 04:34 Albumin/Globulin Ratio 1.3 % 06/13/17 04:34 <KENNEDI PAK - Last Filed: 06/14/17 13:45> Assessment and Plan Assessment and plan: I saw and evaluated the patient. I agree with the findings and the plan of care as documented in the PA's~note, with the following corrections and additions. Diarrhea 3-4 semiformed stools yesterday, give bismuth prn. Consulted heme/onc, ?new spinal mets Hospitalist Physical - Constitutional Vitals: Temp Pulse Resp BP Pulse Ox 97.4 F L 78 20 116/62 98 06/14/17 07:28 06/14/17 10:00 06/14/17 11:00 06/14/17 10:00 06/14/17 07:45 Results - Labs CBC & Chem 7: 06/13/17 04:34 06/13/17 04:34 Labs: Laboratory Last Values WBC 4.6 K/mm3 (4.5-11.0) 06/13/17 04:34 RBC 3.47 M/mm3 (3.65-5.03) L 06/13/17 04:34 Hgb 11.4 gm/dl (11.8-15.2) L 06/13/17 04:34 Hct 33.1 % (35.5-45.6) L 06/13/17 04:34 MCV 96 fl (84-94) H 06/13/17 04:34 MCH 33 pg (28-32) H 06/13/17 04:34 MCHC 34 % (32-34) 06/13/17 04:34 RDW 15.9 % (13.2-15.2) H 06/13/17 04:34 Plt Count 161 K/mm3 (140-440) 06/13/17 04:34 Lymph % (Auto) 3.8 % (13.4-35.0) L 06/13/17 04:34 [place] % (Auto) 12.4 % (0.0-7.3) H 06/13/17 04:34 Eos % (Auto) 0.0 % (0.0-4.3) 06/13/17 04:34 Baso % (Auto) 0.2 % (0.0-1.8) 06/13/17 04:34 Lymph # 0.2 K/mm3 (1.2-5.4) L 06/13/17 04:34 [place] # 0.6 K/mm3 (0.0-0.8) 06/13/17 04:34 Eos # 0.0 K/mm3 (0.0-0.4) 06/13/17 04:34 Baso # 0.0 K/mm3 (0.0-0.1) 06/13/17 04:34 Seg Neutrophils % 83.6 % (40.0-70.0) H 06/13/17 04:34 Seg Neutrophils # 3.8 K/mm3 (1.8-7.7) 06/13/17 04:34 POC ABG pH 7.384 (7.35-7.45) 06/14/17 10:50 POC ABG pCO2 42.6 (35-45) 06/14/17 10:50 POC ABG pO2 85 (80-105) 06/14/17 10:50 POC ABG HCO3 25.4 06/14/17 10:50 POC ABG Total CO2 27 06/14/17 10:50 POC ABG O2 Sat 96 06/14/17 10:50 POC ABG Base Excess 0 06/14/17 10:50 FiO2 21 % 06/14/17 10:50 Sodium 140 mmol/L (137-145) 06/13/17 04:34 Potassium 3.7 mmol/L (3.6-5.0) 06/13/17 04:34 Chloride 100.2 mmol/L (98-107) 06/13/17 04:34 Carbon Dioxide 23 mmol/L (22-30) 06/13/17 04:34 Anion Gap 21 mmol/L 06/13/17 04:34 BUN 17 mg/dL (9-20) 06/13/17 04:34 Creatinine 1.0 mg/dL (0.8-1.5) 06/13/17 04:34 Estimated GFR > 60 ml/min 06/13/17 04:34 BUN/Creatinine Ratio 17 % 06/13/17 04:34 Glucose 178 mg/dL (75-100) H 06/13/17 04:34 Hemoglobin A1c 5.6 % (4-6) 06/12/17 16:33 Calcium 8.3 mg/dL (8.4-10.2) L 06/13/17 04:34 Total Bilirubin 0.20 mg/dL (0.1-1.2) 06/13/17 04:34 Direct Bilirubin < 0.2 mg/dL (0-0.2) 06/12/17 16:33 AST 20 units/L (5-40) 06/13/17 04:34 ALT 18 units/L (7-56) 06/13/17 04:34 Alkaline Phosphatase 75 units/L (35-129) 06/13/17 04:34 Total Creatine Kinase 210 units/L (55-170) H 06/12/17 16:33 CK-MB (CK-2) 2.8 ng/mL (0.0-4.0) 06/12/17 16:33 CK-MB (CK-2) Rel Index 1.3 (0-4) 06/12/17 16:33 Troponin T < 0.010 ng/mL (0.00-0.029) 06/12/17 16:33 NT-Pro-B Natriuret Pep 1709 pg/mL (0-900) H 06/12/17 16:33 Total Protein 6.3 g/dL (6.3-8.2) 06/13/17 04:34 Albumin 3.5 g/dL (3.9-5) L 06/13/17 04:34 Albumin/Globulin Ratio 1.3 % 06/13/17 04:34
--- NOTE | 2017-06-14 13:48 | Progress Note ---
Assessment and Plan Acute Exacerbation of COPD. Acute bronchitis. History of Lung CA. CMOP Diabetes. History of CVA History of ID. - continue supplemental oxygen to keep sats > 90% (O2 2 litres via nasal canula) - RA ABG reviewed - continue bronchodilators and pulmonary hygeine per RT - continue empiric AB's - tobacco cessation counselled - continue GI & VTE prophylaxis - continue systemic steroids and will begin taper in am ...continue other care per attending / other consultants Subjective Date of service: 06/14/17 Principal diagnosis: Acute COPD exacerbation; SOB Interval history: Patient is seen today for: Acute COPD exacerbation; SOB Seen and examined at bedside; 24hour events reviewed; nursing and respiratory care staff consulted; no adverse overnight events reported to me; still SOB; feels a little better; no acute chest pains or increased SOB; No N/V/F/C Objective Vital Signs - 12hr 06/14/17 06/14/17 06/14/17 02:04 05:02 07:00 Temperature Pulse Rate 75 Pulse Rate [ 73 Anterior Bilateral Throughout] Pulse Rate [ 121 H From Monitor] Respiratory 20 Rate Respiratory 18 Rate [Anterior Bilateral Throughout] Blood Pressure Blood Pressure 98/43 [Left] O2 Sat by Pulse 95 97 Oximetry 06/14/17 06/14/17 06/14/17 07:28 07:33 07:45 Temperature 97.4 F L Pulse Rate 82 69 Pulse Rate [ Anterior Bilateral Throughout] Pulse Rate [ From Monitor] Respiratory 20 Rate Respiratory Rate [Anterior Bilateral Throughout] Blood Pressure 116/62 Blood Pressure 101/49 [Left] O2 Sat by Pulse 97 98 Oximetry 06/14/17 06/14/17 06/14/17 07:46 10:00 11:00 Temperature Pulse Rate 78 Pulse Rate [ 74 Anterior Bilateral Throughout] Pulse Rate [ From Monitor] Respiratory 20 Rate Respiratory 18 Rate [Anterior Bilateral Throughout] Blood Pressure 116/62 Blood Pressure [Left] O2 Sat by Pulse Oximetry Constitutional: alert, appears uncomfortable Eyes: non-icteric ENT: oropharynx moist, other (no thyromegaly) Neck: supple, no lymphadenopathy, no JVD Effort: mildly labored Ascultation: Bilateral: diminished breath sounds, rhonchi Percussion: Bilateral: not dull Cardiovascular: regular rate and rhythm, murmur noted (systolic URSB), other ( No rubs) Gastrointestinal: normoactive bowel sounds, soft, non-tender, non-distended, other (No HSM) Integumentary: normal Extremities: no cyanosis, no edema, pulses normal, no ischemia or petechiae Neurologic: normal mental status, non-focal exam, pupils equal and round, motor strength normal and Psychiatric: mood appropriate, affect normal CBC and BMP: 06/13/17 04:34 06/13/17 04:34 ABG, PT/INR, D-dimer: ABG POC ABG pH 7.384 (7.35-7.45) 06/14/17 10:50 POC ABG pCO2 42.6 (35-45) 06/14/17 10:50 POC ABG pO2 85 (80-105) 06/14/17 10:50 POC ABG HCO3 25.4 06/14/17 10:50 POC ABG Total CO2 27 06/14/17 10:50 POC ABG O2 Sat 96 06/14/17 10:50 Abnormal lab findings: Abnormal Labs 06/12/17 06/12/17 06/12/17 16:33 16:33 16:33 RBC Hgb Hct MCV 96 H MCH 33 H RDW 15.8 H Lymph % (Auto) 6.7 L [place] % (Auto) 10.8 H Lymph # 0.5 L Seg Neutrophils % 81.3 H Glucose 132 H Calcium Total Creatine Kinase 210 H NT-Pro-B Natriuret Pep 1709 H Albumin 06/13/17 06/13/17 04:34 04:34 RBC 3.47 L Hgb 11.4 L Hct 33.1 L MCV 96 H MCH 33 H RDW 15.9 H Lymph % (Auto) 3.8 L [place] % (Auto) 12.4 H Lymph # 0.2 L Seg Neutrophils % 83.6 H Glucose 178 H Calcium 8.3 L Total Creatine Kinase NT-Pro-B Natriuret Pep Albumin 3.5 L Chest x-ray: image reviewed
[2017-06-14] MEDS: PEPTO BISMOL PO PRN (17:17)
[2017-06-14] MEDS: XANAX PO PRN (20:23)
[2017-06-14] MEDS: LEVAQUIN 750MG/150ML 750 MG/150 ML BAG IV SCH (23:34)
[2017-06-15] MEDS: DUONEB *Not for PRN Use IH SCH ×3 (01:59→13:15)
[2017-06-15] MEDS: PEPTO BISMOL PO PRN ×2 (03:30→10:39)
[2017-06-15] MEDS: NEURONTIN PO SCH ×2 (05:51→14:36)
[2017-06-15] MEDS: PULMICORT IH SCH (09:00)
[2017-06-15] MEDS: BROVANA NEBU IH SCH (09:00)
--- NOTE | 2017-06-15 10:31 | Consultation ---
History of Present Illness Consult date: 06/15/17 Consult reason: atrial fibrillation History of present illness: This is a 81yr old man who has a history of coronary artery disease and underwent a single bypass with left internal mammary artery graft to the LAD in 2012. A year after his coronary bypass, he was worked up for syncope and found to have severe aortic stenosis. It was recalled that at the time of his bypass, the was only mild in severity. He was evaluated by the CT surgeons who determined he was not optimal candidate for reoperation and his is currently managed conservatively. Patient presents to the hospital with weakness, shortness of breath coughs and congestion, now admitted with COPD exacerbation. A cardiac consultation is requested for atrial fibrillation. His ECG read by computer analysis reports atrial fibrillation. Daniel review of his ECG is a sinus rhythm. Stable sinus rhythm on telemety strips. Patient denies chest pain and palpitations. Denies prior history of arrhythmias. Patient denies loss of consciousness. Medications and Allergies Allergies Allergy/AdvReac Type Severity Reaction Status Date / Time bacitracin Allergy Rash Verified 05/31/13 08:43 [From Neosporin ([id number])] bacitracin zinc Allergy Rash Verified 05/31/13 08:43 [From Neosporin ([id number])] latex Allergy Rash Verified 11/30/16 00:17 neomycin sulfate Allergy Rash Verified 05/31/13 08:43 [From Neosporin ([id number])] polymyxin B Allergy Rash Verified 05/31/13 08:43 [From Neosporin ([id number])] Latex, Natural Rubber AdvReac Rash Verified 11/30/16 00:17 Home Medications Medication Instructions Recorded Confirmed Last Taken Type ALBUTEROL Inhaler [ProAir HFA 2 inhalation INHALATION TID PRN 05/31/13 06/12/17 11/29/16 06:00 History Inhaler] 2 inhal Aspirin [Aspirin BABY CHEW TAB] 1 tab PO DAILY 05/31/13 06/12/17 11/29/16 06:00 History 81mg Metoprolol Tartrate 25 mg PO Q12HR 06/24/15 06/12/17 11/29/16 18:00 History 25mg Amiodarone [Cordarone 200 MG TAB] 200 mg PO DAILY 05/23/16 06/12/17 11/29/16 06: 00 History 200mg Apixaban [Eliquis] 5 mg PO Q12HR 05/23/16 06/12/17 11/29/16 18:00 History 5mg ALPRAZolam [Xanax TAB] 0.25 mg PO DAILY PRN 11/30/16 06/12/17 11/29/16 06:00 History 0.25mg AtorvaSTATin [Lipitor] 40 mg PO QAM 11/30/16 06/12/17 11/29/16 06:00 History 40mg HYDROcodone/APAP 5-325 [[place] 2 each PO Q6HR PRN #30 tablet 12/01/16 06/12/17 Unknown Rx 5-325 mg TAB] Active Meds: Active Medications Acetaminophen (Tylenol) 650 mg PO Q4H PRN PRN Reason: Pain MILD(1-3)/Fever >100.5/PAINTER Last Admin: 06/12/17 23:26 Dose: 650 mg Albuterol (Proventil) 2.5 mg IH Q3HRT PRN PRN Reason: Wheezing/ SOB Albuterol/Ipratropium (Duoneb *Not For Prn Use*) 1 ampul IH Q6HRT [facility] Last Admin: 06/15/17 09:01 Dose: Not Given Alprazolam (Xanax) 0.25 mg PO DAILY PRN PRN Reason: Anxiety Last Admin: 06/14/17 20:23 Dose: 0.25 mg Amiodarone HCl (Cordarone) 200 mg PO DAILY [facility] Last Admin: 06/14/17 09:47 Dose: 200 mg Apixaban (Eliquis) 5 mg PO Q12HR [facility] PRN Reason: Protocol Last Admin: 06/14/17 23:35 Dose: 5 mg Arformoterol Tartrate (Brovana Nebu) 15 mcg IH Q12HRT [facility] Last Admin: 06/15/17 09:00 Dose: 15 mcg Aspirin (Baby Aspirin) 81 mg PO DAILY [facility] Last Admin: 06/14/17 09:48 Dose: 81 mg Atorvastatin Calcium (Lipitor) 40 mg PO QHS [facility] Last Admin: 06/14/17 23:35 Dose: 40 mg Bisacodyl (Dulcolax) 10 mg IA QDAY PRN PRN Reason: Constipation unrelieved by MOM Bismuth Subsalicylate (Pepto Bismol) 262 mg PO Q6H PRN PRN Reason: Diarrhea Last Admin: 06/15/17 03:30 Dose: 262 mg Budesonide (Pulmicort) 0.5 mg IH Q12HRT [facility] Last Admin: 06/15/17 09:00 Dose: 0.5 mg Famotidine (Pepcid) 20 mg PO BID [facility] Last Admin: 06/14/17 23:36 Dose: 20 mg Gabapentin (Neurontin) 100 mg PO Q8HR [facility] Last Admin: 06/15/17 05:51 Dose: 100 mg Levofloxacin/Dextrose (Levaquin 750mg/150ml) 750 mg in 150 mls @ 100 mls/hr IV Q24H [facility] PRN Reason: Protocol Last Admin: 06/14/17 23:34 Dose: 100 mls/hr Magnesium Hydroxide (Milk Of Magnesia) 30 ml PO Q4H PRN PRN Reason: Constipation Methylprednisolone Sodium Succinate (Solu-Medrol) 60 mg IV Q8HR [facility] Last Admin: 06/15/17 05:48 Dose: 60 mg Metoprolol Tartrate (Lopressor) 25 mg PO Q12HR [facility] Last Admin: 06/14/17 23:37 Dose: Not Given Morphine Sulfate (Morphine) 4 mg IV Q4H PRN PRN Reason: Pain , Severe (7-10) Morphine Sulfate (Morphine) 2 mg IV Q4H PRN PRN Reason: Pain, Moderate (4-6) Nicotine (Habitrol) 21 mg TD QDAY [facility] Last Admin: 06/14/17 09:47 Dose: 21 mg Ondansetron HCl (Zofran) 4 mg IV Q8H PRN PRN Reason: N/V unrelieved by Reglan Oxycodone/Acetaminophen (Percocet 5/325) 1 tab PO Q6H PRN PRN Reason: Pain, Moderate (4-6) Zolpidem Tartrate (Ambien) 5 mg PO QHS PRN PRN Reason: Insomnia Last Admin: 06/14/17 23:57 Dose: 5 mg Physical Examination Vital Signs Temp Pulse Resp BP Pulse Ox 98.4 F 83 20 87/47 97 06/12/17 19:05 06/12/17 19:05 06/12/17 19:05 06/12/17 19:05 06/12/17 19:05 Results 06/13/17 04:34 12/27/17 04:34 Assessment and Plan COPD exacerbation CAD s/p CABG 05/2013 with OCHOA to LAD Patent OCHOA to LAD by cath 10/2015 Severe aortic stenosis -previously considered not optimal candidate for reoperation and his is currently managed conservatively. Peripheral vascular disease Hx of Lung cancer in remission Plan: There is no atrial fibrillation. Conservative cardiac management.
[2017-06-15] MEDS: CORDARONE PO SCH (10:38)
[2017-06-15] MEDS: PEPCID PO SCH (10:38)
[2017-06-15] MEDS: LOPRESSOR PO SCH (10:38)
[2017-06-15] MEDS: BABY ASPIRIN PO SCH (10:38)
[2017-06-15] MEDS: ELIQUIS PO SCH (10:38)
[2017-06-15] MEDS: HABITROL TD SCH (10:39)
--- NOTE | 2017-06-15 10:50 | Discharge Summary ---
<PEACE GUEVARA - Last Filed: 06/15/17 14:35> Providers - Providers Date of Admission: 06/12/17 20:40 Date of discharge: 06/15/17 Attending physician: KENNEDI PAK 06/12/17 20:40 Consult to Physician [CONS] Routine Consulting Provider: SRIDHAR DELACRUZ Reason For Exam: Copd exacerbation Place consult to:: marcelo service Notified:: yes Phone number called:: [phone] If yes, spoke with:: simeon Time called:: 08:35 Comment:: mihai 06/14/17 08:22 Consult to Physician [CONS] Routine Consulting Provider: ADOLFO NICHOLE Reason For Exam: afib/aflutter rvr, pt known to you Place consult to:: Dr. Adolfo Nichole Notified:: Dr. Nichole Phone number called:: [phone] Was contact made?: Yes If yes, spoke with:: Gilda Time called:: 14:45 06/14/17 13:20 Consult to Physician [CONS] Routine Consulting Provider: CONNIE OSUNA Reason For Exam: ?spinal mets, ?lung mets Place consult to:: Dr. Connie Osuna Notified:: Dr. Connie Osuna Phone number called:: [phone] Was contact made?: Yes If yes, spoke with:: Brody Time called:: 15:30 Primary care physician: ROXANA KEENAN Hospitalization Condition: Stable Pertinent studies: Chest x-ray revealed chronic lung disease, no acute findings. CTA revealed chronic and subacute compression fractures, severe centrilobular and paraseptal emphysema, trace right pleural effusion, small bilateral pulmonary nodules. Hospital course: 81 Y/o male with Hx of lung cancer s/p chemo and xrt 2011 ,who is sob everyday comes in for increasing sob for the last 2 days. PT NORMALLY ABLE TO WALK TO THE KITCHEN TO FIX HIS FOOD AND IS UNABLE TO DO SO NOW. HE CANNOT EXERT HIMSELF BECAUSE OF INCREASED SOB ON EXERTION AND ALSO SEVERE COUGHING. HE HAS NOT CHEST PAIN. HE SELF MEDICATED WITH 2.5MG OF ALBUTEROL VIA NEB WITHOUT RELIEF. EMS ADMINISTERED 2G MAGNESIUM SULFATE, 125 SOLUMEDROL IV AND 5MG OF ALBUTEROL VIA NEBULIZER. OXYGEN SATURATION WAS 95% Patient was treated with uncle dilators, antibiotics, analgesics, steroids, antidiarrheals, and resumed home medications. Disposition: DC-01 TO HOME OR SELFCARE Time spent for discharge: 32 mins Core Measure Documentation - Palliative Care Palliative Care/ Comfort Measures: Not Applicable - Core Measures Any of the following diagnoses?: none Exam - Constitutional Vitals: Temp Pulse Resp BP Pulse Ox 97.4 F L 99 H 20 132/69 98 06/15/17 08:35 06/15/17 10:38 06/15/17 09:11 06/15/17 10:38 06/15/17 08:58 General appearance: Present: no acute distress, well-nourished - EENT Eyes: Present: PERRL ENT: hearing intact, clear oral mucosa - Neck Neck: Present: supple, normal ROM - Respiratory Respiratory effort: normal Respiratory: bilateral: CTA - Cardiovascular Heart Sounds: Present: S1 & S2. Absent: rub, click - Extremities Extremities: pulses symmetrical, No edema Peripheral Pulses: within normal limits - Abdominal General gastrointestinal: Present: soft, non-tender, non-distended, normal bowel sounds Male genitourinary: Present: deferred - Rectal Rectal Exam: deferred - Integumentary Integumentary: Present: clear, warm, dry - Musculoskeletal Musculoskeletal: gait normal, strength equal bilaterally - Psychiatric Psychiatric: appropriate mood/affect, intact judgment & insight - Neurologic Neurologic: CNII-XII intact, moves all extremities - Allied Health Allied health notes reviewed: nursing Plan Activity: advance as tolerated, fall precautions Weight Bearing Status: Weight Bear as Tolerated Diet: low fat, low cholesterol, low salt Additional Instructions: Follow up with oncologist Dr Cruz for results of labs ordered as inpatient within [address] Cruz no longer rounds on patients at [facility]. Recommend Imodium Over the counter for diarrhea Follow up with: JONY CASTRO MD [Staff Physician] - 7 Days ROXANA KEENAN MD [Primary Care Provider] - 3-5 Days Prescriptions: Levofloxacin [Levaquin] 750 mg PO QDAY #4 tablet methylPREDNISolone [Medrol Dose Oracio] 4 mg PO QAM #1 pack <KENNEDI PAK - Last Filed: 06/15/17 15:30> Providers - Providers Date of Admission: 06/12/17 20:40 Attending physician: KENNEDI PAK 06/12/17 20:40 Consult to Physician [CONS] Routine Consulting Provider: SRIDHAR DELACRUZ Reason For Exam: Copd exacerbation Place consult to:: answering service Notified:: yes Phone number called:: [phone] If yes, spoke with:: simeon Time called:: 08:35 Comment:: mihai 06/14/17 08:22 Consult to Physician [CONS] Routine Consulting Provider: ADOLFO NICHOLE Reason For Exam: afib/aflutter rvr, pt known to you Place consult to:: Dr. Adolfo Nichole Notified:: Dr. Nichole Phone number called:: [phone] Was contact made?: Yes If yes, spoke with:: Gilda Time called:: 14:45 06/14/17 13:20 Consult to Physician [CONS] Routine Consulting Provider: CONNIE OSUNA Reason For Exam: ?spinal mets, ?lung mets Place consult to:: Dr. Connie Osuna Notified:: Dr. Connie Osuna Phone number called:: [phone] Was contact made?: Yes If yes, spoke with:: Brody Time called:: 15:30 Primary care physician: ROXANA KEENAN Hospitalization Hospital course: 81 Y/o male with Hx of lung cancer s/p chemo and xrt 2011 ,who is sob everyday comes in for increasing sob for the last 2 days. PT NORMALLY ABLE TO WALK TO THE KITCHEN TO FIX HIS FOOD AND IS UNABLE TO DO SO NOW. HE CANNOT EXERT HIMSELF BECAUSE OF INCREASED SOB ON EXERTION AND ALSO SEVERE COUGHING. HE HAS NO CHEST PAIN. HE SELF MEDICATED WITH 2.5MG OF ALBUTEROL VIA NEB WITHOUT RELIEF. EMS ADMINISTERED 2G MAGNESIUM SULFATE, 125 SOLUMEDROL IV AND 5MG OF ALBUTEROL VIA NEBULIZER. OXYGEN SATURATION WAS 95% Acute on chronic respiratory failure Sec to COPD/Lung Ca On home O2 PRN Acute exacerbation of chronic obstructive pulmonary disease (COPD) Daughter states allergy to Spiriva Neb tx /Solumedrol and IV Abx Pulmonology following recommended - 1. O2 2 litres via nasal canula. 2. ABGs on room air. 3. Albuterol/atrovent aerosol treatments q 6 hours. 4. Continue I/V solumedral, Levaquine Atrial flutter Patient on Amiodarone and Eliquis History of Lung cancer Follows with Dr Castro, Dr Osuna consulted Peripheral neuropathy Cont Gabapentin Hyperglycemia Likely due to steroids, A1C 5.6 DVT prophylaxis on Eliquis Subacute compression fractures per CT ? due to metastatic disease Tobacco abuse Counselled on smoking cessation Continue Nicoderm patch Core Measure Documentation - Palliative Care Palliative Care/ Comfort Measures: Not Applicable - Core Measures Any of the following diagnoses?: none - VTE Discharge Requirements Deep Vein Thrombosis/Pulmonary Embolism Present on Admission: No Has pt received <5 days of overlap therapy or INR<2.0: No Anticoagulant overlap therapy prescribed at discharge: No Contraindication No Overlap Therapy order at DC: Not Indicated Exam - Constitutional Vitals: Temp Pulse Resp BP Pulse Ox 97.5 F L 77 20 122/61 98 06/15/17 14:36 06/15/17 14:36 06/15/17 14:36 06/15/17 14:36 06/15/17 14:36 Plan Activity: other (no strenous activity until cleared by pcp)
--- NOTE | 2017-06-15 13:30 | Hem/Onc Consultation ---
History of Present Illness - Reason for Consult Consult date: 06/15/17 - History of Present Illness Admitted with SOB. Notices to have Bilateral lung masses and compression fracture. No new complains. Past History Past Medical History: cancer (lung cancer dx 2012 treated with chemo and has been in remission since.) Medications and Allergies Allergies Allergy/AdvReac Type Severity Reaction Status Date / Time bacitracin Allergy Rash Verified 05/31/13 08:43 [From Neosporin (oit-ing-[id number])] bacitracin zinc Allergy Rash Verified 05/31/13 08:43 [From Neosporin ([id number]-hwj-[id number])] latex Allergy Rash Verified 11/30/16 00:17 neomycin sulfate Allergy Rash Verified 05/31/13 08:43 [From Neosporin (ihc-ibj-rcoed)] polymyxin B Allergy Rash Verified 05/31/13 08:43 [From Neosporin ([id number])] Latex, Natural Rubber AdvReac Rash Verified 11/30/16 00:17 Home Medications Medication Instructions Recorded Confirmed Last Taken Type ALBUTEROL Inhaler [ProAir HFA 2 inhalation INHALATION TID PRN 05/31/13 06/12/17 11/29/16 06:00 History Inhaler] 2 inhal Aspirin [Aspirin BABY CHEW TAB] 1 tab PO DAILY 05/31/13 06/12/17 11/29/16 06:00 History 81mg Metoprolol Tartrate 25 mg PO Q12HR 06/24/15 06/12/17 11/29/16 18:00 History 25mg Amiodarone [Cordarone 200 MG TAB] 200 mg PO DAILY 05/23/16 06/12/17 11/29/16 06: 00 History 200mg Apixaban [Eliquis] 5 mg PO Q12HR 05/23/16 06/12/17 11/29/16 18:00 History 5mg ALPRAZolam [Xanax TAB] 0.25 mg PO DAILY PRN 11/30/16 06/12/17 11/29/16 06:00 History 0.25mg AtorvaSTATin [Lipitor] 40 mg PO QAM 11/30/16 06/12/17 11/29/16 06:00 History 40mg HYDROcodone/APAP 5-325 [[place] 2 each PO Q6HR PRN #30 tablet 12/01/16 06/12/17 Unknown Rx 5-325 mg TAB] Gabapentin [Neurontin] 100 mg PO Q8HR capsule 06/15/17 Unknown Rx Levofloxacin [Levaquin] 750 mg PO QDAY #4 tablet 06/15/17 Unknown Rx methylPREDNISolone [Medrol Dose 4 mg PO QAM #1 pack 06/15/17 Unknown Rx Oracio] Active Meds: Active Medications Acetaminophen (Tylenol) 650 mg PO Q4H PRN PRN Reason: Pain MILD(1-3)/Fever >100.5/PAINTER Last Admin: 06/12/17 23:26 Dose: 650 mg Albuterol (Proventil) 2.5 mg IH Q3HRT PRN PRN Reason: Wheezing/ SOB Albuterol/Ipratropium (Duoneb *Not For Prn Use*) 1 ampul IH Q6HRT [facility] Last Admin: 06/15/17 13:15 Dose: Not Given Alprazolam (Xanax) 0.25 mg PO DAILY PRN PRN Reason: Anxiety Last Admin: 06/14/17 20:23 Dose: 0.25 mg Amiodarone HCl (Cordarone) 200 mg PO DAILY [facility] Last Admin: 06/15/17 10:38 Dose: 200 mg Apixaban (Eliquis) 5 mg PO Q12HR [facility] PRN Reason: Protocol Last Admin: 06/15/17 10:38 Dose: 5 mg Arformoterol Tartrate (Brovana Nebu) 15 mcg IH Q12HRT [facility] Last Admin: 06/15/17 09:00 Dose: 15 mcg Aspirin (Baby Aspirin) 81 mg PO DAILY [facility] Last Admin: 06/15/17 10:38 Dose: 81 mg Atorvastatin Calcium (Lipitor) 40 mg PO QHS [facility] Last Admin: 06/14/17 23:35 Dose: 40 mg Bisacodyl (Dulcolax) 10 mg MT QDAY PRN PRN Reason: Constipation unrelieved by MOM Bismuth Subsalicylate (Pepto Bismol) 262 mg PO Q6H PRN PRN Reason: Diarrhea Last Admin: 06/15/17 10:39 Dose: 262 mg Budesonide (Pulmicort) 0.5 mg IH Q12HRT [facility] Last Admin: 06/15/17 09:00 Dose: 0.5 mg Famotidine (Pepcid) 20 mg PO BID [facility] Last Admin: 06/15/17 10:38 Dose: 20 mg Gabapentin (Neurontin) 100 mg PO Q8HR [facility] Last Admin: 06/15/17 05:51 Dose: 100 mg Levofloxacin/Dextrose (Levaquin 750mg/150ml) 750 mg in 150 mls @ 100 mls/hr IV Q24H [facility] PRN Reason: Protocol Last Admin: 06/14/17 23:34 Dose: 100 mls/hr Magnesium Hydroxide (Milk Of Magnesia) 30 ml PO Q4H PRN PRN Reason: Constipation Methylprednisolone Sodium Succinate (Solu-Medrol) 60 mg IV Q8HR [facility] Last Admin: 06/15/17 05:48 Dose: 60 mg Metoprolol Tartrate (Lopressor) 25 mg PO Q12HR [facility] Last Admin: 06/15/17 10:38 Dose: 25 mg Morphine Sulfate (Morphine) 4 mg IV Q4H PRN PRN Reason: Pain , Severe (7-10) Morphine Sulfate (Morphine) 2 mg IV Q4H PRN PRN Reason: Pain, Moderate (4-6) Nicotine (Habitrol) 21 mg TD QDAY [facility] Last Admin: 06/15/17 10:39 Dose: 21 mg Ondansetron HCl (Zofran) 4 mg IV Q8H PRN PRN Reason: N/V unrelieved by Reglan Oxycodone/Acetaminophen (Percocet 5/325) 1 tab PO Q6H PRN PRN Reason: Pain, Moderate (4-6) Zolpidem Tartrate (Ambien) 5 mg PO QHS PRN PRN Reason: Insomnia Last Admin: 06/14/17 23:57 Dose: 5 mg Review of Systems All systems: negative (dyspnea) Exam - Constitutional Vitals: Last Vital Signs Temp 97.4 F L 06/15/17 08:35 Pulse 99 H 06/15/17 10:38 Resp 20 06/15/17 09:11 BP 132/69 06/15/17 10:38 Pulse Ox 98 06/15/17 08:58 Pain Intensity (0-10): denies any pain General appearance: mild distress Performance status: 2- selfcare, ambulatory - EENT Eyes: PERRL ENT: hearing intact Lymph node exam: negative cervical - Neck Neck: supple - Respiratory Respiratory effort: Positive: normal Respiratory: bilateral: CTA - Cardiovascular Rhythm: regular Heart Sounds: Present: S1 & S2 - Gastrointestinal General gastrointestinal: Present: soft Rectal Exam: deferred - Genitourinary Male genitourinary: Present: deferred - Integumentary Integumentary: clear - Musculoskeletal Musculoskeletal: strength equal bilaterally Results - Imaging and cardiology CT scan - chest: report reviewed Assessment and Plan Lung cancer. Patient is aware of lung lesions and spine lesions. Could all be chronic findings. he will see [facility] outpatient oncologist Dr Castro next week itself for follow up to see if additional imaging is required. He has been seeing Dr. Castro for 5 years. Follow up information provided.
[2017-06-15 14:41] VITALS: BP 122/61
--- NOTE | 2017-06-22 09:37 | Query-Infection ---
Deashanika Ibanez____Wise Date:__06/22/17 Submarine Worker/CDS:___Aria / Oscar Phone#:___[phone] Exercise your independent professional judgment when responding to this query. Questions asked do not imply a particular answer is desired or expected. We greatly appreciate your clarification on this issue. Clinical Documentation States: The discharge summary (Cyndi) states " 81 Y/o male with Hx of lung cancer s/p chemo and xrt 2011 ,who is sob everyday comes in for increasing sob for the last 2 days " The Pulmonology progress note (Dr. simon) states " Assessment and Plan: Acute Exacerbation of COPD. Acute bronchitis. " Respiratory rate: 26 Pulse rate: 121 Medications: IV Ceftriaxone, Azithromycin Clinical findings show: (please check applicable parameters) Infection, known /suspected, with some of the following indicators; Specify the infection: 3 General parameters [ ] Fever (core temp >38.30C or 100.40F) [ ] Hypothermia (core temp <36C) [ x] Heart rate >90 bpm [ x] Tachypnea: >20 bpm or pCO2 < 32 mmHg [ ] Altered mental status [ ] Significant edema / +ve fluid balance (>20 ml/kg 24 h) [ ] Hyperglycemia (Bl. glucose >110 mg/dl) w/o diabetes Inflammatory parameters [ ] Leukocytosis (white blood cell count >12,000/l) [ ] Leukopenia (white blood cell count <4,000/l) [ ] Bandemia (immature WBC > 10%) [ ] Leucocyte Left Shift [ ] Plasma procalcitonin>2 SD above the normal value Hemodynamic and tissue perfusion parameters [ ] Arterial hypotension(SBP <90 mmHg, MAP <70 mmHg,or a SBP drop >40 mmHg in adults) [ ] Hyperlactatemia (>3 mmol/l) [ ] Anion Gap (> 11mEG/l) [ ] Decreased capillary refill or mottling Organ dysfunction parameters [ ] Arterial hypoxemia (PaO2/FIO2 <300) [ ] Creatinine increase =0.5 mg/dl [ ] Acute oliguria (urine output <0.5 ml | kg |h or 45 mM/l for at least 2 hrs) [ ] Coagulation abnormalities (INR >1.5 or activated partial thromboplastin time >60 s) [ ] Ileus (absent kandy wel sounds) [ ] Thrombocytopenia (platelet count <100,000/l) [ ] Hyperbilirubinemia (plasma total bilirubin >4 mg/dl) According to the clinical indications above, can Bacteremia be further specified? If so, please indicate below and in your Progress Notes and/ or Discharge Summary. Indicate if the condition was present on admission. PHYSICIAN RESPONSE: [ ] Sepsis [ ] Severe Sepsis [ ] Septic Shock [ ] Septicemia [ ] Sepsis now resolved [ ] SIRS due to non-infectious cause with organ dysfunction [ x] SIRS due to non-infectious cause without organ dysfunction [ ] Other: [ ] Comment/Explanation: Present on Admission: [ x] Yes (Y) [ ] Clinically undeterminable (W) [ ] No (N) [ ] Ruled Out Please also document response in your Progress Notes and/or Discharge Summary and indicate if the condition was present on admission Notes: SIRS/ SIRS WITH ORGAN DYSFUNCTION Systemic inflammatory response syndrome (SIRS) generally refers to the systemic response to trauma/monroy or other insult such as Acute Myocardial Infarction, Acute Pancreatitis, and Major Surgery with symptoms including fever, tachycardia , tachypnea, and leukocytosis (1). BACTEREMIA Presence of viable bacteria in the circulating blood (2). This term is reserved for patients that do not manifest above SIRS response. SEPTICEMIA Generally refers to a systemic disease associated with the presence of pathological microorganisms or toxins in the blood, which can include bacteria, viruses, fungi or other organisms (1). SEPSIS Generally refers to SIRS due infection (1). SEVERE SEPSIS Generally refers to sepsis associated with acute organ dysfunction (1). SEPTIC SHOCK Generally refers to circulatory failure associated with severe sepsis (2), and defined as hypotension or hypoperfusion despite adequate fluid resuscitation (1 hour) (3). REFERENCES: 1. [place] [employer]/Society of Critical Care Medicine Consensus Conference. Definitions for sepsis and organ failure and guidelines for the use of innovative therapies in sepsis. Critical Care Med 1992;20:864 - 74. 2. Shine oleary MM, Gopi MP, Chele RODRIGUES, Nato E, Darion Moody, Yoel D, Allen J, Shaneka SM , Ramirez JL, David G; International Sepsis Definitions Conference. 2001 SCCM/ESICM/ACCP/ATS/SIS International Sepsis Definitions Conference. Intensive Care Med. 2002;29(4):530-8. Epub 2002Sep 12. Review. PubMed PMID:[id number] 3. ICD-9-CM Official Guidelines for Coding and Reporting 4. Medscape Drugs, Diseases and Procedures references 5. [employer] Textbook of Internal Medicine. 18th Edition MTDD
== END 2017-06-15 15:55 | disposition home or self-care (01) | DRG 189 ==
LOC: ED 14:46 → 2B-ACE 20:40
PROVIDERS: ADMIT Internal Medicine; ATTEND Internal Medicine
PROC: 4A033R1 Measurement of Arterial Saturation, Peripheral, Percutaneous Approach (ICD-10-PCS; principal; 2017-06-14)
DX: J96.21 Acute and chronic respiratory failure with hypoxia (principal); J44.1 Chronic obstructive pulmonary disease with (acute) exacerbation; I48.92 Unspecified atrial flutter; M84.58XA Pathological fracture in neoplastic disease, other specified site, initial encounter for fracture; J44.0 Chronic obstructive pulmonary disease with (acute) lower respiratory infection; R65.10 Systemic inflammatory response syndrome (SIRS) of non-infectious origin without acute organ dysfunction; G62.9 Polyneuropathy, unspecified; I48.0 Paroxysmal atrial fibrillation; I35.0 Nonrheumatic aortic (valve) stenosis; F17.200 Nicotine dependence, unspecified, uncomplicated; J20.9 Acute bronchitis, unspecified; Z86.73 Personal history of transient ischemic attack (TIA), and cerebral infarction without residual deficits; I25.2 Old myocardial infarction; Z85.118 Personal history of other malignant neoplasm of bronchus and lung; Z92.21 Personal history of antineoplastic chemotherapy; Z79.82 Long term (current) use of aspirin; Z82.49 Family history of ischemic heart disease and other diseases of the circulatory system; Z71.6 Tobacco abuse counseling; Z95.1 Presence of aortocoronary bypass graft
CPT/HCPCS: 36415; 36600; 71010; 71275; 80048; 80053; 80074; 82550; 82553; 82803; 83036; 83880; 84484; 85025; 93005; 93010; 94640; 94760; 96374; 96375; 99291; A9270-GY; J0456; J0696; J1956; J2405; J2920; J2930; J7050; Q9967

== ENCOUNTER 2017-07-19 07:18 | Outpatient (CLI) | payer MEDICARE ==
--- NOTE | 2017-07-20 08:53 | PET Report ---
PET SB TO MT SUBSEQUENT: HISTORY: Restaging lung cancer. TECHNIQUE: 11.2 millicuries F-18 FDG was administered intravenously. Noncontrast CT images and PET images were obtained from the skull base to the proximal thighs. Fused images were reviewed on a workstation. The patient's blood glucose level measured 103. COMPARISON: 01/20/16. FINDINGS: BRAIN: physiologic FDG uptake in the imaged brain. NECK: physiologic FDG uptake. Benign uptake in the left paraspinal muscles is noted. MEDIASTINUM: There is increased uptake in normal appearing right hilar lymph nodes with SUV max measuring 4.9. LUNGS: There is a new 3.0 cm irregular masslike lesion in the medial right lower lobe with Max SUV measuring 9.0. There is an approximate 1 cm irregular nodule seen lateral to this mass with Max SUV measuring 4.9. PLEURA/PERICARDIUM: There is a subtle smooth area of increased uptake either involving the medial right pleural or possibly the pericardium in the region of the right middle lobe with Max SUV measuring 5.0. HEPATOBILIARY: physiologic FDG uptake. Mean liver SUV measures 3.0. PANCREAS: physiologic FDG uptake. SPLEEN: physiologic FDG uptake. ADRENAL GLANDS: physiologic FDG uptake. KIDNEYS/RENAL COLLECTING SYSTEMS: physiologic FDG uptake. BOWEL/MESENTERY: physiologic FDG uptake. PELVIC VISCERA: physiologic FDG uptake. ABDOMINAL/PELVIC LYMPH NODES: physiologic FDG uptake. MUSCULOSKELETAL: The bony structures are demineralized. No suspicious bony lesion is identified. There is suggestion of a thoracic compression deformity at T7 which is unchanged. IMPRESSION: Recurrence or progression of disease is demonstrated since 01/20/16 exam. There are 2 new nodular hypermetabolic densities in the medial right lower lobe concerning for tumor recurrence. Please note these lesions are not accessible for CT-guided percutaneous biopsy due to their central location. 1 or 2 suspicious but normal-sized right hilar lymph nodes are identified. There is focal smooth thickening along the medial right pleural or possibly the pericardium along the right heart border consistent with pleural or pericardial involvement. No evidence for disease below the diaphragm.
== END 2017-07-19 07:19 | disposition home or self-care (01) ==
LOC: PET 07:18
PROVIDERS: ATTEND Internal Medicine Hematology & Oncology
DX: C44.91 Basal cell carcinoma of skin, unspecified (principal); C34.90 Malignant neoplasm of unspecified part of unspecified bronchus or lung; J44.9 Chronic obstructive pulmonary disease, unspecified; I11.0 Hypertensive heart disease with heart failure; I50.9 Heart failure, unspecified; Z79.899 Other long term (current) drug therapy
CPT/HCPCS: 78815; 82962; A9552

== ENCOUNTER 2018-03-28 09:59 | Outpatient (CLI) | payer MEDICARE ==
--- NOTE | 2018-03-28 15:50 | PET Report ---
PET/CT:03/28/18 09:59:00 CLINICAL: Right lung cancer restaging RADIOPHARMACEUTICAL: 11.283mCi F18-FDG. COMPARISON: 12/06/17 PET/CT TECHNIQUE- Following intravenous injection of F-18 FDG and an approximately 60 minute uptake period, CT and PET images from the mid skull to the upper thighs were acquired with the patient in the fasted state. No contrast was administered. The CT protocol used for this PET CT study is designed for attenuation correction and anatomic localization of PET abnormalities. This shaft sinker CT is not desired to produce and cannot replace, [id number]-[id number]-art diagnostic CT scans with specific imaging protocols for different body parts and indications. Plasma glucose at the time of this test: 121g/dl. The standardized uptake values (SUV) are normalized to patient body weight and indicate the highest activity concentration (SUV max) in a given disease site. FINDINGS: Brain--Physiologic FDG uptake in the visualized regions of the brain. Neck--Physiologic FDG uptake in mucosal structures. No mass or lymphadenopathy. Chest--Physiologic FDG uptake in mediastinal blood pool and myocardium. Lungs--No abnormal uptake. No pulmonary nodule or mass. The previously described left upper lobe lung infiltrate has resolved. Extensive emphysema. Stable right lower lobe scar increased calcification and a 6 mm right lower lobe calcified granuloma. Pleura/pericardium--No abnormal uptake. Stable right pleural thickening. No pleural effusion. Thoracic nodes--No abnormal uptake. Hepatobiliary--No abnormal uptake. Liver background SUV mean, as a reference for comparing FDG studies, is 3.7 compared to 2.7 on the last exam. No liver mass. Spleen--No abnormal uptake. Pancreas--No abnormal uptake. Adrenal Glands--No abnormal uptake. Kidneys/Ureters/Bladder--No abnormal uptake. Abdominopelvic Nodes--No abnormal uptake. Bowel/Peritoneum/Mesentery--No abnormal uptake. Pelvic organs--No abnormal uptake. Bones/Soft Tissues--No abnormal uptake and no suspicious bone lesion. Stable anterior wedge compression fracture of T7. IMPRESSION- Negative study with no evidence of disease recurrence or metastasis.Resolution of left upper lobe pneumonia since the last exam.
== END 2018-03-28 10:00 | disposition home or self-care (01) ==
LOC: PET 09:59
DX: C44.41 Basal cell carcinoma of skin of scalp and neck (principal); J44.9 Chronic obstructive pulmonary disease, unspecified; I50.9 Heart failure, unspecified; Z87.891 Personal history of nicotine dependence
CPT/HCPCS: 78815; 82962; A9552

== ENCOUNTER 2018-07-13 22:04 | Inpatient (IN) | payer MEDICARE ==
[2018-07-13 22:52] LABS: Hemoglobin 8.5 gm/dl (11.8-15.2); Mean Corpuscular HGB Conc 31 % (32-34); Mean Corpuscular Volume 81 fl (84-94); Red Blood Count 3.44 M/mm3 (3.65-5.03); Red Cell Distribution Width 19.8 % (13.2-15.2)
[2018-07-13 22:53] LABS: Platelet Count 320 K/mm3 (140-440)
[2018-07-13] MEDS ORDERED: MAGNESIUM SULFATE 2GM/50ML 2 GM/50 ML BAG IV ONE (22:58)
[2018-07-13] MEDS ORDERED: ATROVENT IH ONE (22:58)
[2018-07-13] MEDS ORDERED: PROVENTIL IH ONE (22:58)
[2018-07-13 23:08] LABS: BUN/Creatinine Ratio 21; Blood Urea Nitrogen 21 mg/dL (9-20); Calcium 8.9 mg/dL (8.4-10.2); Hemolysis Index 5
--- NOTE | 2018-07-14 00:02 | XRay Report ---
FINAL REPORT PROCEDURE: XR CHEST 1V AP TECHNIQUE: Chest radiograph anteroposterior view. CPT 29270 HISTORY: STEVEN COMPARISON: No prior studies are available for comparison. FINDINGS: Heart: Normal. Mediastinum/Vessels: Normal. Lungs/Pleural space: Lungs are expanded. There are chronic fibrotic lung changes. There are no infilt rates, effusions or pneumothoraces.. Bony thorax: No acute osseous abnormality. Life support devices: None. IMPRESSION: No acute cardiopulmonary abnormality.
[2018-07-14] MEDS ORDERED: XANAX PO ONE (00:29)
[2018-07-14] MEDS ORDERED: TYLENOL PO ONE (00:29)
--- NOTE | 2018-07-14 00:30 | Emergency Department Report ---
ED Shortness of Breath HPI - General Chief Complaint: Dyspnea/Respdistress Stated Complaint: SOB Time Seen by Provider: 07/13/18 22:34 Source: patient Mode of arrival: Stretcher Limitations: No Limitations - History of Present Illness Initial Comments: 82-year-old male presents to ED with complaint of shortness of breath. Patient has history of lung cancer, currently in remission, and COPD. Chronically on 3 L of O2 at home. Daughter states patient is "always "short of breath, however symptoms became worse tonight. Exacerbation believed to be due to increased amount of coughing. Patient used his Advair and rescue inhaler which did not work. Patient then had a nebulizer treatment at home prior to coming to the ER. He Patient was seen by his PCP, Dr. Carroll earlier in the week. He was given prescription for prednisone and amoxicillin, which she has been taken. Patient denies chest pain, fever. MD Complaint: shortness of breath, cough -: This evening Severity: moderate Consistency: constant Improves With: nothing Worsens With: exertion, coughing Known History Of: COPD Associated Symptoms: cough Treatments Prior to Arrival: oxygen, bronchodilator - Related Data Home Oxygen Therapy: Yes Home Oxygen Amount: 3 Liters Home Medications Medication Instructions Recorded Confirmed Last Taken ALBUTEROL Inhaler (OR & NICU) 2 inhalation INHALATION TID PRN 05/31/13 01/31/18 07/07/17 17:00 [ProAir HFA Inhaler] Aspirin [Aspirin BABY CHEW TAB] 1 tab PO DAILY 05/31/13 01/31/18 07/08/17 05:00 Metoprolol Tartrate 25 mg PO Q12HR 06/24/15 01/31/18 07/08/17 05:00 Amiodarone [Cordarone 200 MG TAB] 200 mg PO QPM 05/23/16 01/31/18 07/07/17 17:00 Apixaban [Eliquis] 5 mg PO Q12HR 05/23/16 01/31/18 07/08/17 05:00 ALPRAZolam [Xanax TAB] 0.25 mg PO DAILY PRN 11/30/16 01/31/18 07/08/17 05:00 AtorvaSTATin [Lipitor] 40 mg PO QAM 11/30/16 01/31/18 07/08/17 05:00 Advair 250-50 Diskus 1 mcg INHALATION BID 07/08/17 01/31/18 07/08/17 05:00 Amiodarone [Cordarone 200 MG TAB] 200 mg PO QDAY 02/02/18 02/02/18 1 Day Ago ~02/01/18 LORazepam [Ativan] 0.5 mg PO BID PRN 02/02/18 02/02/18 3 Days Ago ~01/30/18 Previous Rx's Medication Instructions Recorded Last Taken Type Incruse Ellipta 62.5 Mcg 1 puff INHALATION DAILY@0800 #1 02/08/18 Unknown Rx Ipratropium [Atrovent NEB] 0.5 mg IH TIDRT #120 nebu 02/08/18 Unknown Rx Levalbuterol [Xopenex] 0.63 mg IH Q6HRT #120 nebu 02/08/18 Unknown Rx Pantoprazole [Protonix TAB] 40 mg PO DAILY #30 tablet 02/08/18 Unknown Rx cefUROXime [Ceftin] 500 mg PO Q12HR #14 tablet 02/08/18 Unknown Rx Allergies Allergy/AdvReac Type Severity Reaction Status Date / Time bacitracin Allergy Rash Verified 05/31/13 08:43 [From Neosporin ([id number])] bacitracin zinc Allergy Rash Verified 05/31/13 08:43 [From Neosporin ([id number])] latex Allergy Rash Verified 11/30/16 00:17 neomycin sulfate Allergy Rash Verified 05/31/13 08:43 [From Neosporin ([id number])] polymyxin B Allergy Rash Verified 05/31/13 08:43 [From Neosporin ([id number])] prednisone Allergy Unknown Verified 01/31/18 14:56 Latex, Natural Rubber AdvReac Rash Verified 11/30/16 00:17 ED Review of Systems ROS: Stated complaint: SOB Other details as noted in HPI Comment: All other systems reviewed and negative Constitutional: denies: chills, fever Respiratory: cough, shortness of breath, wheezing Cardiovascular: denies: chest pain Musculoskeletal: other (denies leg pain and swelling) ED Past Medical Hx - Past Medical History Hx Hypertension: Yes Hx CVA: Yes (2011 no residual) Hx Heart Attack/AMI: Yes (2 CA 2012) Hx Congestive Heart Failure: No Hx Diabetes: No Hx Asthma: Yes Hx COPD: Yes Hx HIV: No Additional medical history: lung cancer in remission s/p chemo/xrt 2012 - Surgical History Hx Open Heart Surgery: Yes Hx Cholecystectomy: No Hx Appendectomy: No Hx Breast Surgery: No Additional Surgical History: 2 back surgeries, bypass surgery in may of 2013. tonsil - Social History Smoking Status: Former Smoker Substance Use Type: None - Medications Home Medications: Home Medications Medication Instructions Recorded Confirmed Last Taken Type ALBUTEROL Inhaler (OR & NICU) 2 inhalation INHALATION TID PRN 05/31/13 01/31/18 07/07/17 17:00 History [ProAir HFA Inhaler] Aspirin [Aspirin BABY CHEW TAB] 1 tab PO DAILY 05/31/13 01/31/18 07/08/17 05:00 History Metoprolol Tartrate 25 mg PO Q12HR 06/24/15 01/31/18 07/08/17 05:00 History Amiodarone [Cordarone 200 MG TAB] 200 mg PO QPM 05/23/16 01/31/18 07/07/17 17:00 History Apixaban [Eliquis] 5 mg PO Q12HR 05/23/16 01/31/18 07/08/17 05:00 History ALPRAZolam [Xanax TAB] 0.25 mg PO DAILY PRN 11/30/16 01/31/18 07/08/17 05:00 History AtorvaSTATin [Lipitor] 40 mg PO QAM 11/30/16 01/31/18 07/08/17 05:00 History Advair 250-50 Diskus 1 mcg INHALATION BID 07/08/17 01/31/18 07/08/17 05:00 History Amiodarone [Cordarone 200 MG TAB] 200 mg PO QDAY 02/02/18 02/02/18 1 Day Ago History ~02/01/18 LORazepam [Ativan] 0.5 mg PO BID PRN 02/02/18 02/02/18 3 Days Ago History ~01/30/18 Incruse Ellipta 62.5 Mcg 1 puff INHALATION DAILY@0800 #1 02/08/18 Unknown Rx Ipratropium [Atrovent NEB] 0.5 mg IH TIDRT #120 nebu 02/08/18 Unknown Rx Levalbuterol [Xopenex] 0.63 mg IH Q6HRT #120 nebu 02/08/18 Unknown Rx Pantoprazole [Protonix TAB] 40 mg PO DAILY #30 tablet 02/08/18 Unknown Rx cefUROXime [Ceftin] 500 mg PO Q12HR #14 tablet 02/08/18 Unknown Rx ED Physical Exam - General Limitations: No Limitations General appearance: alert - Head Head exam: Present: atraumatic, normocephalic - Eye Eye exam: Present: normal appearance - ENT ENT exam: Present: mucous membranes moist - Neck Neck exam: Present: normal inspection - Respiratory Respiratory exam: Present: respiratory distress (mild), wheezes - Cardiovascular Cardiovascular Exam: Present: regular rate, normal rhythm - GI/Abdominal GI/Abdominal exam: Present: soft. Absent: distended, tenderness - Extremities Exam Extremities exam: Absent: pedal edema, calf tenderness - Neurological Exam Neurological exam: Present: alert, oriented X3 - Psychiatric Psychiatric exam: Present: normal affect, normal mood - Skin Skin exam: Present: warm, dry, intact, normal color. Absent: rash ED Course Vital Signs 07/13/18 07/13/18 22:10 23:41 Temperature 99 F Pulse Rate 100 H Pulse Rate [ 77 Anterior] Respiratory 16 Rate Respiratory 18 Rate [Anterior] Blood Pressure 112/64 O2 Sat by Pulse 97 Oximetry ED Medical Decision Making - Lab Data Result diagrams: 07/13/18 22:37 07/13/18 22:37 - EKG Data -: EKG Interpreted by Pr EKG shows normal: sinus rhythm, axis, intervals, QRS complexes - EKG Data When compared to previous EKG there are: no significant change (compared to 01/31/18) Interpretation: nonspecific ST-T wave livia - Radiology Data Radiology results: report reviewed, image reviewed - Medical Decision Making 82-year-old male with COPD exacerbation. O2 sats normal 4 L of O2. Mag sulfate and albuterol nebulizer treatment given. Daughter in patient reported allergy to prednisone, however seems to be more of an intolerance as patient was given prescription for it earlier in the week and took it for several days before stopping it early. For this reason Solu-Medrol was held. She has elevated WBCs at 15, however this could be due to the steroids. Patient is afebrile and lactic acid normal. Chest x-ray negative for any infiltrate or effusion or pulmonary edema. No changes present on EKG. Will admit to hospitalist, Dr. Curtis. - Differential Diagnosis pneumonia, COPD exacerbation, CHF Critical Care Time: Yes Critical care time in (mins) excluding proc time.: 35 Critical care attestation.: If time is entered above; I have spent that time in minutes in the direct care of this critically ill patient, excluding procedure time. Critical Care Time: 35 minutes ED Disposition Clinical Impression: COPD with acute exacerbation Disposition: OP ADMIT IP TO THIS HOSP Is pt being admited?: Yes Condition: Stable Instructions: Chronic Obstructive Pulmonary Disease (ED) Time of Disposition: 00:53
[2018-07-14 02:35] LABS: Band Neutrophils # (Manual) 2.6 K/mm3; Basophils % (Manual) 0 % (0.0-1.8); Total Cells Counted 100
[2018-07-14 02:36] LABS: Anisocytosis 1+; Platelet Estimate Consistent w Auto
[2018-07-14] MEDS: ATIVAN PO PRN ×2 (03:46→21:06)
[2018-07-14 06:24] LABS: Creatine Kinase MB 1.3 ng/mL (0.0-4.0)
[2018-07-14] MEDS: DUONEB *Not for PRN Use IH SCH ×4 (07:42→19:31)
[2018-07-14] MEDS ORDERED: INCRUSE ELLIPTA 62.5 MCG INHALATION SCH (08:00)
[2018-07-14] MEDS ORDERED: BROVANA NEBU IH SCH (08:00)
[2018-07-14] MEDS ORDERED: PULMICORT IH SCH (08:00)
--- NOTE | 2018-07-14 08:34 | History and Physical Report ---
CHIEF COMPLAINT: Shortness of breath. HISTORY OF PRESENT ILLNESS: The patient is an 82-year-old male with known history of COPD and lung cancer, who is on home O2 presenting with shortness of breath going on for quite some time, but worse within the last 24 hours of presentation. The patient's shortness of breath is worse with exertion and better with rest. Also, the patient believed that his shortness of breath has been increased due to coughing. The patient stated that his shortness of breath is better relieved with his Advair Diskus and not with his rescue albuterol inhaler and prior to coming to the Emergency Room, the patient took some breathing treatment. He denies history of chest pain, denies history of fever or chills and saw his primary care doctor recently during which he was given a course of amoxicillin and steroid prednisone. PAST MEDICAL HISTORY: Pertinent for hypertension, cerebrovascular accident, coronary artery disease, status post myocardial infarction, asthma, COPD, lung cancer in remission. PAST SURGICAL HISTORY: Pertinent for back surgery, bypass surgery in 05/2013, and tonsillectomy. REVIEW OF SYSTEMS: CONSTITUTIONAL: There is no fever, no chills, no diaphoresis. HEENT: There is no headache or sore throat. CARDIOVASCULAR SYSTEM: There is no chest pain or orthopnea. RESPIRATORY SYSTEM: Shortness of breath is present. Cough is present. GASTROINTESTINAL SYSSTEM: There is no nausea, no vomiting, no abdominal pain, diarrhea, or constipation. NEUROLOGICAL SYSTEM: There is no numbness, no dizziness, no altered mental status. MUSCULOSKELETAL SYSTEM: There is no joint pain or swelling. DERMATOLOGICAL SYSTEM: There is no skin rash or itching. GENITOURINARY SYSTEM: There is no dysuria, hematuria, or flank pain. Rest of system review is normal. PHYSICAL EXAMINATION: GENERAL: At the time of exam, the patient was found to be alert, oriented x 3, and in mild due to shortness of breath. VITAL SIGNS: Shows the patient with normal temperature, pulse o 98, respiration 21, and O2 sat of 97% on oxygen. The patient's blood pressure was not documented. HEENT: Showed pupils to be equal, round, reactive to light and accommodating. Extraocular muscles are intact. NECK: Supple with no JVD or carotid bruit. CARDIOVASCULAR SYSTEM: Showed normal first and second heart sounds with no gallops or murmur. RESPIRATORY SYSTEM: Show reduced air entry on both sides of the lungs with respiratory wheezing. GASTROINTESTINAL SYSTEM: Show abdomen to be full, soft, nontender with no organomegaly or rigidity. NEUROLOGICAL: Shows no focal deficit. MUSCULOSKELETAL SYSTEM: Show no joint swelling or tenderness. DERMATOLOGICAL SYSTEM: Show no skin rash. GENITOURINARY SYSTEM: Showing no costovertebral angle tenderness. PERTINENT LABORATORY AND IMAGING STUDIES: The patient had a chest x-ray done that shows no acute cardiopulmonary lesions. The patient's lab results show CBC with elevated white count of 15.4 and low hemoglobin of 8.5, and low hematocrit of 28 with low MCV of 81. The patient's CBC deferential showed elevated sedimentation rate and the patient's chemistry was unremarkable. DIAGNOSES: Chronic obstructive pulmonary disease excerebration. PLAN OF ACTION: 1. The patient will be admitted to medical floor as inpatient. 2. The patient will have serial cardiac enzyme involving troponin, total CK, and CK-MB checked every 6 hours x 2 more levels. 3. The patient will be on DuoNeb nebulizer q.i.d. 4. The patient will be on IV Levaquin 750 mg daily. 5. The patient will be on his home medications as shown in the medication reconciliation section. 6. The patient will be on Robitussin 200 mg per 10 mL every 4 hours as needed for cough. 7. The patient's home medications will be started as shown in the medication reconciliation section and this will include Advair Diskus that the patient requested for. 8. The patient said he is allergic to prednisone. 9. The patient's diet will be 2 g sodium diet. 10. The patient will be on p.r.n. medications like Tylenol 650 mg by mouth every 4 hours for fever and headache and will be on IV Zofran 4 mg every 8 hours for nausea and vomiting. 11. The patient's DVT prophylaxis will be through heparin 5000 units subcutaneous q. 12 hours. JOB# [id number] OCN/NTS MTDD
--- NOTE | 2018-07-14 08:53 | Event Note ---
Date: 07/14/18 Per ED documentation 82-year-old male with Atrial fibrillation on Eliquis, COPD exacerbation. O2 sats normal 4 L of O2. Mag sulfate and albuterol nebulizer treatment given. Daughter in patient reported allergy to prednisone, however seems to be more of an intolerance as patient was given prescription for it earlier in the week and took it for several days before stopping it early. For this reason Solu-Medrol was held. She has elevated WBCs at 15, however this could be due to the steroids. Patient is afebrile and lactic acid normal. Chest x-ray negative for any infiltrate or effusion or pulmonary edema. Continue current management. Monitor leukocytosis and Anemia. Hgb is at baseline Consult Pulmonary Reconcile home meds.
[2018-07-14] MEDS: LEVAQUIN 750MG/150ML 750 MG/150 ML BAG IV SCH (10:00)
[2018-07-14] MEDS ORDERED: ADVAIR INHALATION SCH (10:00)
[2018-07-14] MEDS ORDERED: HEPARIN SUB-Q SCH (10:00)
[2018-07-14] MEDS: ADVAIR 250 MCG PO SCH ×2 (11:02→21:05)
[2018-07-14] MEDS: PROTONIX PO SCH (11:04)
[2018-07-14] MEDS: LOPRESSOR PO SCH ×2 (11:04→21:05)
[2018-07-14] MEDS: ELIQUIS PO SCH ×2 (11:05→21:04)
[2018-07-14] MEDS: BABY ASPIRIN PO SCH (11:05)
[2018-07-14] MEDS: CORDARONE PO SCH (11:11)
[2018-07-14 13:12] LABS: Creatine Kinase MB 1.4 ng/mL (0.0-4.0)
[2018-07-14] MEDS ORDERED: ATROVENT IH SCH (14:00)
[2018-07-14] MEDS: XOPENEX IH SCH ×2 (14:04→19:31)
[2018-07-14] MEDS ORDERED: CORDARONE PO SCH (18:00)
--- NOTE | 2018-07-14 18:44 | Consultation ---
History of Present Illness Consult date: 07/14/18 Requesting physician: CRISTOPHER NAVARRO Reason for consult: dyspnea History of present illness: 82 yo with COPD. Previously followed by Ramya but denies having lung MD now. Has hx of lung cancer on immunotherapy every 3 weeks, records not available. Admitted with 2 weeks of increased SOB, wheezing, cough, congestion. Apparently received some Prednisone as an outpatient from his PCP and believes this caused his L arm to "break out". He cannot furnish further details but this is now listed as an allergy. Denies fevers, chills, chest pain, hemoptysis. Active Medications Acetaminophen (Tylenol) 650 mg PO Q4H PRN PRN Reason: Fever >101 Albuterol/Ipratropium (Duoneb *Not For Prn Use*) 1 ampul IH QIDRT [facility] Last Admin: 07/14/18 17:06 Dose: 1 ampul Documented by: Alprazolam (Xanax) 0.25 mg PO QAM PRN PRN Reason: Agitation Amiodarone HCl (Cordarone) 200 mg PO QDAY [facility] Last Admin: 07/14/18 11:11 Dose: 200 mg Documented by: Apixaban (Eliquis) 5 mg PO Q12HR [facility]; Protocol Last Admin: 07/14/18 11:05 Dose: 5 mg Documented by: Aspirin (Baby Aspirin) 81 mg PO DAILY [facility] Last Admin: 07/14/18 11:05 Dose: 81 mg Documented by: Atorvastatin Calcium (Lipitor) 40 mg PO QAM [facility] Last Admin: 07/14/18 11:05 Dose: 40 mg Documented by: Levofloxacin/Dextrose (Levaquin 750mg/150ml) 750 mg in 150 mls @ 100 mls/hr IV Q24HR [facility]; Protocol Last Admin: 07/14/18 10:00 Dose: 100 mls/hr Documented by: Levalbuterol HCl (Xopenex) 0.63 mg IH Q6HRT [facility] Last Admin: 07/14/18 14:04 Dose: Not Given Documented by: Lorazepam (Ativan) 0.5 mg PO BID PRN PRN Reason: Anxiety Last Admin: 07/14/18 03:46 Dose: 0.5 mg Documented by: Methylprednisolone Sodium Succinate (Solu-Medrol) 40 mg IV Q8HR [facility] Metoprolol Tartrate (Lopressor) 25 mg PO Q12HR [facility] Last Admin: 07/14/18 11:04 Dose: 25 mg Documented by: Miscellaneous Medication (Incruse Ellipta 62.5 Mcg) 1 puff INHALATION DAILY@0800 [facility] Miscellaneous Medication (Advair 250-50 Diskus) 250 mcg PO BID [facility] Last Admin: 07/14/18 11:02 Dose: 250 mcg Documented by: Pantoprazole Sodium (Protonix) 40 mg PO DAILY [facility] Last Admin: 07/14/18 11:04 Dose: 40 mg Documented by: Past History Past Medical History: other (COPD, Chronic respiratory failure, Afib, CAD, , Lung cancer) Social history: full code. denies: smoking, alcohol abuse, prescription drug abuse, IV drug use Family history: other (No pulm issues reported) Medications and Allergies Allergies Allergy/AdvReac Type Severity Reaction Status Date / Time bacitracin Allergy Rash Verified 05/31/13 08:43 [From Neosporin ([id number])] bacitracin zinc Allergy Rash Verified 05/31/13 08:43 [From Neosporin ([id number])] latex Allergy Rash Verified 11/30/16 00:17 neomycin sulfate Allergy Rash Verified 05/31/13 08:43 [From Neosporin ([id number])] polymyxin B Allergy Rash Verified 05/31/13 08:43 [From Neosporin ([id number])] prednisone Allergy Unknown Verified 01/31/18 14:56 Latex, Natural Rubber AdvReac Rash Verified 11/30/16 00:17 Home Medications Medication Instructions Recorded Confirmed Last Taken Type ALBUTEROL Inhaler (OR & NICU) 2 inhalation INHALATION TID PRN 05/31/13 01/31/18 07/07/17 17:00 History [ProAir HFA Inhaler] Aspirin [Aspirin BABY CHEW TAB] 1 tab PO DAILY 05/31/13 01/31/18 07/08/17 05:00 History Metoprolol Tartrate 25 mg PO Q12HR 06/24/15 01/31/18 07/08/17 05:00 History Amiodarone [Cordarone 200 MG TAB] 200 mg PO QPM 05/23/16 01/31/18 07/07/17 17:00 History Apixaban [Eliquis] 5 mg PO Q12HR 12/06/16 08/16/18 01/21/18 05:00 History ALPRAZolam [Xanax TAB] 0.25 mg PO DAILY PRN 11/30/16 01/31/18 07/08/17 05:00 History AtorvaSTATin [Lipitor] 40 mg PO QAM 11/30/16 01/31/18 07/08/17 05:00 History Advair 250-50 Diskus 1 mcg INHALATION BID 07/08/17 01/31/18 07/08/17 05:00 History Amiodarone [Cordarone 200 MG TAB] 200 mg PO QDAY 02/02/18 02/02/18 1 Day Ago History ~02/01/18 LORazepam [Ativan] 0.5 mg PO BID PRN 02/02/18 02/02/18 3 Days Ago History ~01/30/18 Incruse Ellipta 62.5 Mcg 1 puff INHALATION DAILY@0800 #1 02/08/18 Unknown Rx Ipratropium [Atrovent NEB] 0.5 mg IH TIDRT #120 nebu 02/08/18 Unknown Rx Levalbuterol [Xopenex] 0.63 mg IH Q6HRT #120 nebu 02/08/18 Unknown Rx Pantoprazole [Protonix TAB] 40 mg PO DAILY #30 tablet 02/08/18 Unknown Rx cefUROXime [Ceftin] 500 mg PO Q12HR #14 tablet 02/08/18 Unknown Rx Active Meds: Active Medications Acetaminophen (Tylenol) 650 mg PO Q4H PRN PRN Reason: Fever >101 Albuterol/Ipratropium (Duoneb *Not For Prn Use*) 1 ampul IH QIDRT [facility] Last Admin: 07/14/18 17:06 Dose: 1 ampul Documented by: Alprazolam (Xanax) 0.25 mg PO QAM PRN PRN Reason: Agitation Amiodarone HCl (Cordarone) 200 mg PO QDAY [facility] Last Admin: 07/14/18 11:11 Dose: 200 mg Documented by: Apixaban (Eliquis) 5 mg PO Q12HR [facility]; Protocol Last Admin: 07/14/18 11:05 Dose: 5 mg Documented by: Aspirin (Baby Aspirin) 81 mg PO DAILY [facility] Last Admin: 07/14/18 11:05 Dose: 81 mg Documented by: Atorvastatin Calcium (Lipitor) 40 mg PO QAM [facility] Last Admin: 07/14/18 11:05 Dose: 40 mg Documented by: Levofloxacin/Dextrose (Levaquin 750mg/150ml) 750 mg in 150 mls @ 100 mls/hr IV Q24HR [facility]; Protocol Last Admin: 07/14/18 10:00 Dose: 100 mls/hr Documented by: Levalbuterol HCl (Xopenex) 0.63 mg IH Q6HRT [facility] Last Admin: 07/14/18 14:04 Dose: Not Given Documented by: Lorazepam (Ativan) 0.5 mg PO BID PRN PRN Reason: Anxiety Last Admin: 07/14/18 03:46 Dose: 0.5 mg Documented by: Methylprednisolone Sodium Succinate (Solu-Medrol) 40 mg IV Q8HR [facility] Metoprolol Tartrate (Lopressor) 25 mg PO Q12HR [facility] Last Admin: 07/14/18 11:04 Dose: 25 mg Documented by: Miscellaneous Medication (Incruse Ellipta 62.5 Mcg) 1 puff INHALATION DAILY@0800 [facility] Miscellaneous Medication (Advair 250-50 Diskus) 250 mcg PO BID [facility] Last Admin: 07/14/18 11:02 Dose: 250 mcg Documented by: Pantoprazole Sodium (Protonix) 40 mg PO DAILY [facility] Last Admin: 07/14/18 11:04 Dose: 40 mg Documented by: Review of Systems All systems: negative Physical Examination Vital signs: Vital Signs Temp Pulse Resp BP Pulse Ox 99 F 100 H 16 112/64 97 07/13/18 22:10 07/13/18 22:10 07/13/18 22:10 07/13/18 22:10 07/13/18 22:10 General appearance: no acute distress, alert Eyes: non-icteric ENT: oropharynx moist Neck: supple Effort: normal Ascultation: Bilateral: wheezes Cardiovascular: regular rate and rhythm (no mrg) Gastrointestinal: normoactive bowel sounds, soft, non-tender, non-distended Extremities: no cyanosis, no edema, pink and warm normal mental status, non-focal exam, pupils equal and round, CN II-XII normal mood appropriate, affect normal Results - Laboratory Findings CBC and BMP: 07/13/18 22:37 07/13/18 22:37 Abnormal lab findings: Abnormal Labs 07/13/18 07/13/18 07/14/18 22:37 22:37 05:41 WBC 15.4 H RBC 3.44 L Hgb 8.5 L Hct 28.0 L MCV 81 L MCH 25 L MCHC 31 L RDW 19.8 H Lymphocytes % (Manual) 3.0 L Monocytes % (Manual) 14.0 H Seg Neutrophils # Man 9.9 H Lymphocytes # (Manual) 0.5 L Monocytes # (Manual) 2.2 H BUN 21 H Glucose 129 H Total Creatine Kinase 43 L 07/14/18 12:25 WBC RBC Hgb Hct MCV MCH MCHC RDW Lymphocytes % (Manual) Monocytes % (Manual) Seg Neutrophils # Man Lymphocytes # (Manual) Monocytes # (Manual) BUN Glucose Total Creatine Kinase 36 L - Diagnostic Findings Chest x-ray: report reviewed (no acute process; I cannot pull up images) Assessment and Plan Imp: 1. Acute bronchitis 2. COPD exac. 3. Centrilobular emphysema 4. Chronic respiratory failure, hypoxia 5. Lung cancer on immunotherapy per patient 6. Normocytic anemia Rec: 1. Cont. Levaquin and Bronchodilators 2. Significant wheezing on exam; he will not improve without steroids; I doubt a true Prednisone allergy; will initiate Solumedrol 40mg IV [id number]; if any problems on this can try changing to Decadron 3. Will review imaging when [employer] will allow 4. F/u with a assemblyman or woman at d/c would be prudent at this point Plan of care reviewed w/ patient, he understands/agrees; thanks for the consult
[2018-07-14] MEDS: TYLENOL PO PRN (21:04)
[2018-07-14] MEDS: SOLU-Medrol IV SCH ×2 (21:05→21:59)
[2018-07-15] MEDS: ATROVENT IH SCH ×4 (02:21→19:02)
[2018-07-15] MEDS: XOPENEX IH SCH ×4 (02:21→19:02)
[2018-07-15 03:56] LABS: BUN/Creatinine Ratio 22; Blood Urea Nitrogen 22 mg/dL (9-20); Calcium 8.5 mg/dL (8.4-10.2); Hemolysis Index 20
[2018-07-15 04:17] LABS: Hematocrit 27.2 % (35.5-45.6); Hemoglobin 8.7 gm/dl (11.8-15.2); Mean Corpuscular HGB Conc 32 % (32-34); Mean Corpuscular Volume 80 fl (84-94); Platelet Count 273 K/mm3 (140-440); Red Blood Count 3.39 M/mm3 (3.65-5.03); Red Cell Distribution Width 19.8 % (13.2-15.2)
[2018-07-15] MEDS: SOLU-Medrol IV SCH ×4 (06:30→21:41)
[2018-07-15] MEDS: PULMICORT IH SCH ×2 (07:37→19:02)
[2018-07-15] MEDS: CORDARONE PO SCH (09:37)
[2018-07-15] MEDS: BABY ASPIRIN PO SCH (09:37)
[2018-07-15] MEDS: ELIQUIS PO SCH ×2 (09:37→21:41)
[2018-07-15] MEDS: PROTONIX PO SCH (09:37)
[2018-07-15] MEDS: LEVAQUIN 750MG/150ML 750 MG/150 ML BAG IV SCH (09:38)
[2018-07-15] MEDS: LOPRESSOR PO SCH ×2 (10:38→21:42)
[2018-07-15] MEDS: XANAX PO PRN (10:41)
--- NOTE | 2018-07-15 14:23 | Progress Note ---
Assessment and Plan Assessment and plan: 82-year-old male with Atrial fibrillation on Eliquis, Lung Ca on immunotherapy, with Remision per family, COPD exacerbation. O2 sats normal 4 L of O2. Mag sulfate and albuterol nebulizer treatment given. Daughter in patient reported allergy to prednisone, however seems to be more of an intolerance as patient was given prescription for it earlier in the week and took it for several days before stopping it early. For this reason Solu-Medrol was held. She has elevated WBCs at 15, however this could be due to the steroids. Patient is afebrile and lactic acid normal. Chest x-ray negative for any infiltrate or effusion or pulmonary edema. He Patient was seen by his PCP, Dr. Carroll earlier in the week. He was given prescription for prednisone and amoxicillin, which she has been taken but states he reacted to the prednisone. Daughter also reports some hyperactivity with one hour douneb treatment Patient denies chest pain, fever. Acute bronchitis Acute on Chronic respiratory failure, hypoxia No Clear evidence of Sepsis COPD exacerbation. Centrilobular emphysema Lung cancer on immunotherapy per patient Normocytic anemia ?Atrial fibrillation Plan Continue supportive care Discussed with Nursing staff to initiate the ordered prednisone Pulmonary Consult noted Continue home meds Patient on Amiodarone. Will defer to Pulmonary considering his pulmonary status. Discussed with patient and daughter DVT/GI prophy History Interval history: Patient seen and examined, clinically stable still with some shortness of breath Hospitalist Physical - Physical exam Narrative exam: VITAL SIGNS: Reviewed. GENERAL: The patient appeared mild respiratory distress. Vital signs as documented. HEAD: No signs of head trauma. EYES: Pupils are equal. Extraocular motions intact. EARS: Hearing grossly intact. MOUTH: Oropharynx is normal. NECK: No adenopathy, no JVD. CHEST: Chest with diminshed breath sounds bilaterally. No wheezes, rales, or rhonchi. CARDIAC: Regular rate and rhythm. S1 and S2, without murmurs, gallops, or rubs. VASCULAR: No Edema. Peripheral pulses normal and equal in all extremities. ABDOMEN: Soft, without detectable tenderness. No sign of distention. No rebound or guarding, and no masses palpated. Bowel Sounds normal. MUSCULOSKELETAL: Good range of motion of all major joints. Extremities without clubbing, cyanosis or edema. NEUROLOGIC EXAM: Alert and oriented x 3. No focal sensory or strength deficits. Speech normal. Follows commands. PSYCHIATRIC: Mood normal. SKIN: No rash or lesions. - Constitutional Vitals: Temp Pulse Resp BP Pulse Ox 97.5 F L 100 H 20 108/61 95 07/15/18 11:34 07/15/18 13:53 07/15/18 13:53 07/15/18 11:34 07/15/18 11:34 Results - Labs CBC & Chem 7: 07/15/18 02:33 07/15/18 02:33 Labs: Laboratory Last Values WBC 10.4 K/mm3 (4.5-11.0) 07/15/18 02:33 RBC 3.39 M/mm3 (3.65-5.03) L 07/15/18 02:33 Hgb 8.7 gm/dl (11.8-15.2) L 07/15/18 02:33 Hct 27.2 % (35.5-45.6) L 07/15/18 02:33 MCV 80 fl (84-94) L 07/15/18 02:33 MCH 26 pg (28-32) L 07/15/18 02:33 MCHC 32 % (32-34) 07/15/18 02:33 RDW 19.8 % (13.2-15.2) H 07/15/18 02:33 Plt Count 273 K/mm3 (140-440) 07/15/18 02:33 [place] % (Auto) Event Manager 07/13/18 22:37 Add Manual Diff Complete 07/13/18 22:37 Total Counted 100 07/13/18 22:37 Seg Neuts % (Manual) 64.0 % (40.0-70.0) 07/13/18 22:37 Band Neutrophils % 17.0 % 07/13/18 22:37 Lymphocytes % (Manual) 3.0 % (13.4-35.0) L 07/13/18 22:37 Reactive Lymphs % (Man) 1.0 % 07/13/18 22:37 Monocytes % (Manual) 14.0 % (0.0-7.3) H 07/13/18 22:37 Eosinophils % (Manual) 1.0 % (0.0-4.3) 07/13/18 22:37 Basophils % (Manual) 0 % (0.0-1.8) 07/13/18 22:37 Metamyelocytes % 0 % 07/13/18 22:37 Myelocytes % 0 % 07/13/18 22:37 Promyelocytes % 0 % 07/13/18 22:37 Blast Cells % 0 % 07/13/18 22:37 Nucleated RBC % Not Reportable 07/13/18 22:37 Seg Neutrophils # Man 9.9 K/mm3 (1.8-7.7) H 07/13/18 22:37 Band Neutrophils # 2.6 K/mm3 07/13/18 22:37 Lymphocytes # (Manual) 0.5 K/mm3 (1.2-5.4) L 07/13/18 22:37 Abs React Lymphs (Man) 0.2 K/mm3 07/13/18 22:37 Monocytes # (Manual) 2.2 K/mm3 (0.0-0.8) H 07/13/18 22:37 Eosinophils # (Manual) 0.2 K/mm3 (0.0-0.4) 07/13/18 22:37 Basophils # (Manual) 0.0 K/mm3 (0.0-0.1) 07/13/18 22:37 Metamyelocytes # 0.0 K/mm3 07/13/18 22:37 Myelocytes # 0.0 K/mm3 07/13/18 22:37 Promyelocytes # 0.0 K/mm3 07/13/18 22:37 Blast Cells # 0.0 K/mm3 07/13/18 22:37 WBC Morphology Not Reportable 07/13/18 22:37 Hypersegmented Neuts Not Reportable 07/13/18 22:37 Hyposegmented Neuts Not Reportable 07/13/18 22:37 Hypogranular Neuts Not Reportable 07/13/18 22:37 Smudge Cells Not Reportable 07/13/18 22:37 Toxic Granulation Not Reportable 07/13/18 22:37 Toxic Vacuolation Not Reportable 07/13/18 22:37 Dohle Bodies Not Reportable 07/13/18 22:37 Pelger-Huet Anomaly Not Reportable 07/13/18 22:37 Eren Rods Not Reportable 07/13/18 22:37 Platelet Estimate Consistent w auto 07/13/18 22:37 Clumped Platelets Not Reportable 07/13/18 22:37 Plt Clumps, EDTA Not Reportable 07/13/18 22:37 Large Platelets Not Reportable 07/13/18 22:37 Giant Platelets Not Reportable 07/13/18 22:37 Platelet Satelliting Not Reportable 07/13/18 22:37 Plt Morphology Comment Not Reportable 07/13/18 22:37 RBC Morphology Not Reportable 07/13/18 22:37 Dimorphic RBCs Not Reportable 07/13/18 22:37 Polychromasia 1+ 07/13/18 22:37 Hypochromasia Not Reportable 07/13/18 22:37 Poikilocytosis Not Reportable 07/13/18 22:37 Anisocytosis 1+ 07/13/18 22:37 Microcytosis Not Reportable 07/13/18 22:37 Macrocytosis Not Reportable 07/13/18 22:37 Spherocytes Not Reportable 07/13/18 22:37 Pappenheimer Bodies Not Reportable 07/13/18 22:37 Sickle Cells Not Reportable 07/13/18 22:37 Target Cells Not Reportable 07/13/18 22:37 Tear Drop Cells Not Reportable 07/13/18 22:37 Ovalocytes Not Reportable 07/13/18 22:37 Helmet Cells Not Reportable 07/13/18 22:37 [place] Bodies Not Reportable 07/13/18 22:37 [place] Rings Not Reportable 07/13/18 22:37 [place] Cells Not Reportable 07/13/18 22:37 Bite Cells Not Reportable 07/13/18 22:37 Crenated Cell Not Reportable 07/13/18 22:37 Elliptocytes Few 07/13/18 22:37 Acanthocytes (Spur) Not Reportable 07/13/18 22:37 Rouleaux Not Reportable 07/13/18 22:37 Hemoglobin C Crystals Not Reportable 07/13/18 22:37 Schistocytes Not Reportable 07/13/18 22:37 Malaria parasites Not Reportable 07/13/18 22:37 Jermaine Bodies Not Reportable 07/13/18 22:37 Hem Pathologist Commnt No 07/13/18 22:37 Sodium 135 mmol/L (137-145) L 07/15/18 02:33 Potassium 4.3 mmol/L (3.6-5.0) 07/15/18 02:33 Chloride 102.5 mmol/L (98-107) 07/15/18 02:33 Carbon Dioxide 20 mmol/L (22-30) L 07/15/18 02:33 Anion Gap 17 mmol/L 07/15/18 02:33 BUN 22 mg/dL (9-20) H 07/15/18 02:33 Creatinine 1.0 mg/dL (0.8-1.5) 07/15/18 02:33 Estimated GFR > 60 ml/min 07/15/18 02:33 BUN/Creatinine Ratio 22 % 07/15/18 02:33 Glucose 112 mg/dL (75-100) H 07/15/18 02:33 Lactic Acid 1.50 mmol/L (0.7-2.0) 07/13/18 23:17 Calcium 8.5 mg/dL (8.4-10.2) 07/15/18 02:33 Total Creatine Kinase 36 units/L (55-170) L 07/14/18 12:25 CK-MB (CK-2) 1.4 ng/mL (0.0-4.0) 07/14/18 12:25 CK-MB (CK-2) Rel Index 3.8 (0-4) 07/14/18 12:25 Troponin T < 0.010 ng/mL (0.00-0.029) 07/14/18 12:25
--- NOTE | 2018-07-15 14:44 | Progress Note ---
Assessment and Plan 82 y/o male with presumed COPD exacerbation. 1. Continue IV solumedrol 2. Continue pulmicort and Duonebs with Xoponex 3. Supplemental O2, attempt to wean for sats >88% Subjective Date of service: 07/15/18 Interval history: No acute events. Tolerating Solumedrol without reaction Objective Vital Signs - 12hr 07/15/18 07/15/18 07/15/18 06:24 07:35 07:45 Temperature 98.7 F Pulse Rate 100 H Pulse Rate [ 90 101 H Anterior] Respiratory 20 Rate Respiratory 24 20 Rate [Anterior] Blood Pressure 113/51 O2 Sat by Pulse 93 Oximetry 07/15/18 07/15/18 07/15/18 09:38 11:34 13:45 Temperature 97.5 F L Pulse Rate 103 H 109 H Pulse Rate [ 92 H Anterior] Respiratory 22 24 Rate Respiratory 24 Rate [Anterior] Blood Pressure 101/48 108/61 O2 Sat by Pulse 99 95 Oximetry 07/15/18 13:53 Temperature Pulse Rate Pulse Rate [ 100 H Anterior] Respiratory Rate Respiratory 20 Rate [Anterior] Blood Pressure O2 Sat by Pulse Oximetry Constitutional: no acute distress, alert Eyes: non-icteric ENT: oropharynx moist Neck: supple Effort: normal Ascultation: Bilateral: wheezes Cardiovascular: regular rate and rhythm (no mrg) Gastrointestinal: normoactive bowel sounds, soft, non-tender, non-distended Extremities: no cyanosis, no edema, pink and warm Neurologic: normal mental status, non-focal exam, pupils equal and round, CN II- XII normal Psychiatric: mood appropriate, affect normal CBC and BMP: 07/15/18 02:33 07/15/18 02:33 Abnormal lab findings: Abnormal Labs 07/13/18 07/13/18 07/14/18 22:37 22:37 05:41 WBC 15.4 H RBC 3.44 L Hgb 8.5 L Hct 28.0 L MCV 81 L MCH 25 L MCHC 31 L RDW 19.8 H Lymphocytes % (Manual) 3.0 L Monocytes % (Manual) 14.0 H Seg Neutrophils # Man 9.9 H Lymphocytes # (Manual) 0.5 L Monocytes # (Manual) 2.2 H Sodium Carbon Dioxide BUN 21 H Glucose 129 H Total Creatine Kinase 43 L 07/14/18 07/15/18 07/15/18 12:25 02:33 02:33 WBC RBC 3.39 L Hgb 8.7 L Hct 27.2 L MCV 80 L MCH 26 L MCHC RDW 19.8 H Lymphocytes % (Manual) Monocytes % (Manual) Seg Neutrophils # Man Lymphocytes # (Manual) Monocytes # (Manual) Sodium 135 L Carbon Dioxide 20 L BUN 22 H Glucose 112 H Total Creatine Kinase 36 L
[2018-07-15] MEDS ORDERED: PROVENTIL IH PRN (19:15)
[2018-07-15] MEDS: ADVAIR 250 MCG PO SCH (21:07)
[2018-07-15] MEDS: TYLENOL PO PRN (21:41)
[2018-07-15] MEDS: ATIVAN PO PRN (21:42)
[2018-07-16] MEDS: XOPENEX IH SCH ×3 (02:46→13:48)
[2018-07-16] MEDS: ATROVENT IH SCH ×3 (02:46→13:48)
[2018-07-16] MEDS: SOLU-Medrol IV SCH ×2 (05:49→13:23)
--- NOTE | 2018-07-16 09:50 | Discharge Summary ---
Providers - Providers Date of Admission: 07/14/18 03:37 Attending physician: JOSE ALBERTO MONTANA MD 07/14/18 08:52 Consult to Physician [CONS] Routine Comment: Consulting Provider: DIDIER BREWSTER Physician Instructions: Reason For Exam: COPD WITH EXACERBATION 07/15/18 13:35 Physical Therapy Evaluation and Treat [CONS] Routine Comment: Reason For Exam: difficulty in ambulation Primary care physician: ALEXANDRA GUADALUPE Hospitalization Reason for admission: COPD exacerbation Condition: Stable Pertinent studies: Chest x-ray IMPRESSION: No acute cardiopulmonary abnormality. Hospital course: 82-year-old male with Atrial fibrillation on Eliquis, Lung Ca on immunotherapy, with Remision per family, COPD exacerbation. O2 sats normal on 4 L of O2. Mag sulfate and albuterol nebulizer treatment given. Patient and his daughter reported allergy to prednisone, however seems to be more of an intolerance as patient was given prescription for it earlier in the week and took it for several days before stopping it early. She has elevated WBCs at 15, however this could be due to the steroids. Patient is afebrile and lactic acid normal. Chest x-ray negative for any infiltrate or effusion or pulmonary edema. He Patient was seen by his PCP, Dr. Guadalupe earlier in the week. He was given prescription for prednisone and amoxicillin, which she has been taken but states he reacted to the prednisone. Daughter also reports some hyperactivity with one hour douneb treatment Patient denies chest pain, fever. Patient was admitted and treated for COPD exacerbation with IV Solu-Medrol, nebulizer treatment, Advair, oxygen support. Patient showed improvement. I have discussed with the patient before discharge and he said he tolerated Solu- Medrol well and asked the oral version of solumedrol. patient was given Medrol pack and antibiotic as a time of discharge. Patient said he has Advair at home. Patient is on home oxygen. Patient was on 2 L intranasal oxygen and was saturating well. Pulmonary consult appreciated. Patient is hemodynamically stable to discharge. Patient's questions and concerns were addressed at the bedside. Disposition: [id number] HOME UNDER HOME [facility] Time spent for discharge: 32 minutes - Discharge Diagnoses (1) Acute exacerbation of chronic obstructive pulmonary disease (COPD) Status: Acute (2) Acidosis Status: Acute (3) Acute dyspnea Status: Acute (4) Acute respiratory failure Status: Acute Qualifiers: Respiratory failure complication: hypoxia Qualified Code(s): J96.01 - Acute respiratory failure with hypoxia (5) Lung cancer Status: Acute Qualifiers: Laterality: unspecified laterality (6) Shortness of breath Status: Acute Core Measure Documentation - Palliative Care Palliative Care/ Comfort Measures: Not Applicable - Core Measures Any of the following diagnoses?: none Exam - Physical Exam Narrative exam: Not in cardiopulmonary distress. The patient appeared well nourished and normally developed. Vital signs as documented. Head exam is unremarkable. No scleral icterus . Neck is without jugular venous distension, thyromegaly, or carotid bruits. Lungs are clear to auscultation. Cardiac exam reveals regular rate and Rhythm. Abdominal exam reveals normal bowel sounds. Extremities are nonedematous and both femoral and pedal pulses are normal. 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 No focal weakness. - Constitutional Vitals: Temp Pulse Resp BP Pulse Ox 97.3 F L 84 16 109/57 94 07/16/18 05:14 07/16/18 08:23 07/16/18 08:23 07/16/18 05:14 07/16/18 08:23 Plan Activity: no restrictions Weight Bearing Status: Full Weight Bearing Diet: low cholesterol, low salt Follow up with: ALEXANDRA GUADALUPE MD [Primary Care Provider] - 7 Days Prescriptions: levoFLOXacin [Levaquin] 750 mg PO QDAY #5 tablet methylPREDNISolone [Medrol] 4 mg PO QID #1 tab.ds.pk
[2018-07-16] MEDS: LEVAQUIN 750MG/150ML 750 MG/150 ML BAG IV SCH (10:24)
[2018-07-16] MEDS: PROTONIX PO SCH (10:25)
[2018-07-16] MEDS: ELIQUIS PO SCH (10:25)
[2018-07-16] MEDS: XANAX PO PRN (10:25)
[2018-07-16] MEDS: LOPRESSOR PO SCH (10:26)
[2018-07-16] MEDS: CORDARONE PO SCH (10:26)
[2018-07-16] MEDS: BABY ASPIRIN PO SCH (10:26)
[2018-07-16 12:35] VITALS: BP 111/56
--- NOTE | 2018-07-16 13:07 | Progress Note ---
Assessment and Plan 82 y/o male with presumed COPD exacerbation. 1. IMS discharging. Could send out on a trial of decadron to see if he tolerates this. Could do 12 of decadron for 2 days, then 8 of decadron for 2 days, then 4 of decadron for 2 days then stop. 2. If patient does not have symbicort or a nebulizer at home would sen out on [id number] 2 puffs BID 3. Will need to be assessed for O2 need prior to discharge. Subjective Date of service: 07/16/18 Interval history: Discharge order in for patient. Per chart he has a prednisone allergy. Objective Vital Signs - 12hr 07/16/18 07/16/18 07/16/18 05:14 08:23 10:22 Temperature 97.3 F L Pulse Rate 80 85 Pulse Rate [ 84 Anterior] Pulse Rate [ 88 Bilateral Throughout] Respiratory 20 22 Rate Respiratory 16 Rate [Anterior] Respiratory 16 Rate [Bilateral Throughout] Blood Pressure 109/57 121/63 O2 Sat by Pulse 94 94 91 Oximetry 07/16/18 07/16/18 10:26 11:36 Temperature 97.3 F L Pulse Rate 88 Pulse Rate [ Anterior] Pulse Rate [ Bilateral Throughout] Respiratory 22 Rate Respiratory Rate [Anterior] Respiratory Rate [Bilateral Throughout] Blood Pressure 121/63 111/56 O2 Sat by Pulse 89 Oximetry Constitutional: no acute distress, alert Eyes: non-icteric ENT: oropharynx moist Neck: supple Effort: normal Ascultation: Bilateral: wheezes Cardiovascular: regular rate and rhythm (no mrg) Gastrointestinal: normoactive bowel sounds, soft, non-tender, non-distended Extremities: no cyanosis, no edema, pink and warm Neurologic: normal mental status, non-focal exam, pupils equal and round, CN II- XII normal Psychiatric: mood appropriate, affect normal CBC and BMP: 07/15/18 02:33 07/15/18 02:33 Abnormal lab findings: Abnormal Labs 07/13/18 07/13/18 07/14/18 22:37 22:37 05:41 WBC 15.4 H RBC 3.44 L Hgb 8.5 L Hct 28.0 L MCV 81 L MCH 25 L MCHC 31 L RDW 19.8 H Lymphocytes % (Manual) 3.0 L Monocytes % (Manual) 14.0 H Seg Neutrophils # Man 9.9 H Lymphocytes # (Manual) 0.5 L Monocytes # (Manual) 2.2 H Sodium Carbon Dioxide BUN 21 H Glucose 129 H Total Creatine Kinase 43 L 07/14/18 07/15/18 07/15/18 12:25 02:33 02:33 WBC RBC 3.39 L Hgb 8.7 L Hct 27.2 L MCV 80 L MCH 26 L MCHC RDW 19.8 H Lymphocytes % (Manual) Monocytes % (Manual) Seg Neutrophils # Man Lymphocytes # (Manual) Monocytes # (Manual) Sodium 135 L Carbon Dioxide 20 L BUN 22 H Glucose 112 H Total Creatine Kinase 36 L
== END 2018-07-16 14:15 | disposition home health service (06) | DRG 189 ==
LOC: ED 22:04 → 3A 07-14 03:37
PROVIDERS: ADMIT Internal Medicine; ATTEND Internal Medicine
DX: J96.21 Acute and chronic respiratory failure with hypoxia (principal); J44.1 Chronic obstructive pulmonary disease with (acute) exacerbation; J44.0 Chronic obstructive pulmonary disease with (acute) lower respiratory infection; C34.90 Malignant neoplasm of unspecified part of unspecified bronchus or lung; I48.91 Unspecified atrial fibrillation; I25.10 Atherosclerotic heart disease of native coronary artery without angina pectoris; I10 Essential (primary) hypertension; J20.9 Acute bronchitis, unspecified; D64.9 Anemia, unspecified; Z99.81 Dependence on supplemental oxygen; Z90.89 Acquired absence of other organs; Z86.73 Personal history of transient ischemic attack (TIA), and cerebral infarction without residual deficits; I25.2 Old myocardial infarction; Z88.8 Allergy status to other drugs, medicaments and biological substances; Z88.1 Allergy status to other antibiotic agents; Z91.040 Latex allergy status; Z79.51 Long term (current) use of inhaled steroids; Z79.899 Other long term (current) drug therapy; Z79.82 Long term (current) use of aspirin; Z79.01 Long term (current) use of anticoagulants; Z92.21 Personal history of antineoplastic chemotherapy; Z87.891 Personal history of nicotine dependence
CPT/HCPCS: 36415; 71045; 80048; 82140; 82550; 82553; 84484; 85007; 85025; 85027; 87116; 93005; 93010; 94640; 94760; G0378; A9270-GY; J1644; J1956; J2920; J3475

== ENCOUNTER 2018-08-01 07:07 | Outpatient (CLI) | payer MEDICARE ==
--- NOTE | 2018-08-02 11:37 | PET Report ---
PET SB TO MT SUBSEQUENT: HISTORY: Restaging of right lung cancer. TECHNIQUE: 14.0 millicuries F-18 FDG was administered intravenously. Noncontrast CT images and PET images were obtained from the skull base to the proximal thighs. Fused images were reviewed on a workstation. The patient's blood glucose level measured 140. COMPARISON: 03/28/18. FINDINGS: BRAIN: physiologic FDG uptake in the imaged brain. NECK: physiologic FDG uptake. MEDIASTINUM: physiologic FDG uptake. LUNGS: physiologic FDG uptake. Moderate to severe emphysema. Scarring/radiation changes in the right hilar region are again noted. PLEURA/PERICARDIUM: physiologic FDG uptake. THORACIC LYMPH NODES: physiologic FDG uptake. HEPATOBILIARY: physiologic FDG uptake. Mean liver SUV measures 3.2. The gallbladder appears to be packed with stones. No inflammatory changes. PANCREAS: physiologic FDG uptake. SPLEEN: physiologic FDG uptake. ADRENAL GLANDS: physiologic FDG uptake. KIDNEYS/RENAL COLLECTING SYSTEMS: physiologic FDG uptake. BOWEL/MESENTERY: physiologic FDG uptake. PELVIC VISCERA: physiologic FDG uptake. ABDOMINAL/PELVIC LYMPH NODES: physiologic FDG uptake. MUSCULOSKELETAL: physiologic FDG uptake. Osteopenia is noted. There appears to be a compression fracture at approximately T7 level which is unchanged. IMPRESSION: Negative PET/CT. No evidence for disease recurrence or metastasis. Stable findings since 03/28/18.
== END 2018-08-01 07:08 | disposition home or self-care (01) ==
LOC: PET 07:07
PROVIDERS: ATTEND Internal Medicine Hematology & Oncology
DX: C34.01 Malignant neoplasm of right main bronchus (principal); M85.80 Other specified disorders of bone density and structure, unspecified site; J43.9 Emphysema, unspecified; I11.0 Hypertensive heart disease with heart failure; I50.9 Heart failure, unspecified; E78.00 Pure hypercholesterolemia, unspecified; Z90.89 Acquired absence of other organs; Z87.891 Personal history of nicotine dependence
CPT/HCPCS: 78815; 82962; A9552

== ENCOUNTER 2018-10-03 07:56 | Outpatient (CLI) | payer MEDICARE ==
--- NOTE | 2018-10-03 10:21 | PET Report ---
PET/CT:10/03/18 07:56:00 CLINICAL: Right lung cancer restaging. RADIOPHARMACEUTICAL: 12.493mCi F18-FDG. COMPARISON: 09/29/18, 08/01/18, 03/28/18 and 12/06/17 PET/CT TECHNIQUE- Following intravenous injection of F-18 FDG and an approximately 60 minute uptake period, CT and PET images from the mid skull to the upper thighs were acquired with the patient in the fasted state. No contrast was administered. The CT protocol used for this PET CT study is designed for attenuation correction and anatomic localization of PET abnormalities. This utilization coordinator CT is not desired to produce and cannot replace, [id number] diagnostic CT scans with specific imaging protocols for different body parts and indications. Plasma glucose at the time of this test: g/dl. The standardized uptake values (SUV) are normalized to patient body weight and indicate the highest activity concentration (SUV max) in a given disease site. FINDINGS: Brain--Physiologic FDG uptake in the visualized regions of the brain. Neck--Physiologic FDG uptake in mucosal structures. No mass or lymphadenopathy. Chest--Physiologic FDG uptake in mediastinal blood pool and myocardium. Lungs--A new round 2.2 x 2.2 cm left upper lobe opacity with irregular margins and mild FDG uptake with SUV 2.5. The lungs are otherwise unchanged. Moderate to severe emphysema with stable scarring in the right lower lobe. Pleura/pericardium--No abnormal uptake. Thoracic nodes--No abnormal uptake. Hepatobiliary--No abnormal uptake. Liver background SUV mean, as a reference for comparing FDG studies, is 3.1 compared to 3.1 on the last exam. No liver mass. Spleen--No abnormal uptake. Pancreas--No abnormal uptake. Adrenal Glands--No abnormal uptake. Kidneys/Ureters/Bladder--No abnormal uptake. Abdominopelvic Nodes--No abnormal uptake. Bowel/Peritoneum/Mesentery--No abnormal uptake. Pelvic organs--No abnormal uptake. Bones/Soft Tissues--No abnormal uptake and no suspicious bone lesion. IMPRESSION- 1. A new patchy 2.2 cm left upper lobe lung opacity with minimal FDG uptake is suspicious for either tumor or pneumonia. 2. The rest of the exam is negative with no evidence of renetta, adrenal, hepatic or skeletal metastasis.
== END 2018-10-03 07:57 | disposition home or self-care (01) ==
LOC: PET 07:56
PROVIDERS: ATTEND Internal Medicine Hematology & Oncology
DX: C34.91 Malignant neoplasm of unspecified part of right bronchus or lung (principal); J43.9 Emphysema, unspecified; I11.0 Hypertensive heart disease with heart failure; I50.9 Heart failure, unspecified; E78.00 Pure hypercholesterolemia, unspecified; Z90.89 Acquired absence of other organs; R91.8 Other nonspecific abnormal finding of lung field
CPT/HCPCS: 78815; 82962; A9552

== ENCOUNTER 2019-01-09 07:26 | Outpatient (CLI) | payer MEDICARE ==
--- NOTE | 2019-01-09 11:24 | PET Report ---
POSITRON EMISSION TOMOGRAPHY WITH CT FOR ATTENUATION CORRECTION AND ANATOMIC CORRELATION ONLY Indication: Restaging lung cancer Comparison: 10/03/2018 Technique: Study was performed from skull base to mid thigh using 13.359 millicuries of F18-FDG injec uday into the left antecubital fossa at 0805 hours with scan initiation time of 0851 hours. Just prior to injection, serum glucose level was measured at 124 mg/dl. Low-resolution CT without contrast was performed. All CT scans at this location are performed using CT dose reduction for ALARA by means of automated exposure control. CT findings: Median sternotomy changes are seen. Prominent coronary artery calcifications are noted. Moderate chronic pulmonary changes are again seen. Scarring is again noted bilaterally. The area of f ocal infiltrate and slight nodularity seen previously in the lateral aspect of the left upper lobe atkins s resolved. No new areas of nodularity are seen. A calcified granuloma is noted on the right. Multipl e low-density gallstones are again noted. There is a suggestion of gallbladder wall edema though ther e is some motion artifact in this area. 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 Heavy atherosclerotic changes are noted. Dilatation of the right comm on iliac artery is unchanged. PET findings: Small foci of bilateral increased activity in the lower neck appear to correlate radiog raphically with either musculature or fat and are thought unlikely to be significant. Increased activ ity in a left lower lateral rib is at a partially healed rib fracture which was not obvious previousl y. I do not see a definite underlying lesion in this may simply be a healing fracture. A partially he aled fracture is also noted of an adjacent posterior lateral lower left rib showing increased activit y with pattern again without an obvious pathologic lesion. There is a focus of increased activity in a lower left anterior rib not obviously associated with the costochondral junction. This has maximal SUV of 2.8 and was not seen previously. Activity in the sternum is thought related to the median ster notomy. The abnormal appearing gallbladder shows prominent increased metabolic activity in the wall a bubba with maximal SUV of 10.2. No other intra-abdominal or intrapelvic significant abnormal activity i s seen. Both ivonne show patchy areas of increased metabolic activity with maximal SUV of 3.6. Similar bilateral ischial patchy activity is seen. Increased activity is noted in the proximal right femur 2 maximal SUV of 2.8. Focal area of increased activity with maximal SUV of 3.9 is seen in the L4 verteb ral body and several other lower thoracic and lumbar vertebral bodies show mild patchy areas of incre ased activity. These bony changes were not as apparent on prior study. IMPRESSION: 1. Resolution of the focal area of infiltrate and nodularity in the left upper lobe [facility] [place] in September 2. Scattered bony areas of mildly increased activity are noted as above. 2 of the rib foci of increas ed activity are thought related to healing rib fractures but another left rib focus is not obviously accounted for by benign process. Activity in the pelvic region as described above is of some concern for bony metastatic disease and does not have clear radiographic correlate. Bone scintigraphy may be useful to correlate with these findings. 3. Findings of concern for acute cholecystitis Signer Name: Junior Cadena MD Signed: 01/09/2019 11:20 AM Workstation Name: [id number]
== END 2019-01-09 07:27 | disposition home or self-care (01) ==
LOC: PET 07:26
PROVIDERS: ATTEND Internal Medicine Hematology & Oncology
DX: C34.90 Malignant neoplasm of unspecified part of unspecified bronchus or lung (principal); I25.10 Atherosclerotic heart disease of native coronary artery without angina pectoris; I11.0 Hypertensive heart disease with heart failure; I50.9 Heart failure, unspecified; E78.00 Pure hypercholesterolemia, unspecified; J43.9 Emphysema, unspecified; Z90.89 Acquired absence of other organs; R91.8 Other nonspecific abnormal finding of lung field
CPT/HCPCS: 78815; 82962; A9552